=== PATIENT | female | born 1970 | race Caucasian/White ===

== ENCOUNTER 2019-07-25 13:05 | Emergency (ER) | payer BC, SELFPAY ==
--- NOTE | ~2019-07-25 | XR_ITS ---
XR chest 1V portable DATE: 07/25/2019 13:42 INDICATION: Midline chest pressure TECHNIQUE: Portable AP chest on 07/25/2019 at 1336 hours COMPARISON: None FINDINGS: Normal heart size. No hilar or mediastinal enlargement. No pulmonary infiltrate or consolid ation, pleural effusion or pulmonary vascular congestion or pneumothorax. Included skeletal structure s are unremarkable. IMPRESSION: No active cardiopulmonary disease Reviewed, dictated and finalized at location A.
[2019-07-25 13:13] VITALS: BP 132/84; PULSE 78; RESP 12; TEMP 37.1; O2SAT 99
--- NOTE | 2019-07-25 13:25 | ECG_ITS ---
Measurements Intervals [place] Rate: 82 P: 60 SD: 133 QRS: -8 QRSD: 90 T: 33 QT: 351 QTc: 412 Interpretive Statements SINUS RHYTHM WITH SINUS ARRHYTHMIA BASELINE ARTIFACT- I, II, III, AVL NORMAL ECG Electronically Signed On 07-25-2019 17:46:11 CDT by Olivier Cervantes D.O.
--- NOTE | 2019-07-25 13:32 | ED.GENADULT ---
HPI - General Adult General Chief complaint: Chest Pain Stated complaint: chest pressure, left arm pain Time Seen by Provider: 07/25/19 13:15 Source: patient Mode of arrival: ambulatory Limitations: no limitations History of Present Illness HPI narrative: Patient is a 48-year-old female who presents to emergency department for evaluation of left arm pain that developed last night around 2 AM coupled with chest pressure patient took a regular strength aspirin at that time notes this morning she only had chest heaviness. Patient currently denies any arm pain or chest pain. Patient presents per private vehicle per request of her primary care doctor. Patient in the room in no distress denies radicular symptoms paresthesias does note some anxiety with history of anxiety. Denies any past cardiac pulmonary issues or history. Related Data Allergies Allergy/AdvReac Type Severity Reaction Status Date / Time butorphanol Allergy Intermediate incoherent, Verified 04/25/17 18:36 fever cefdinir Allergy Unknown rash Verified 08/28/15 08:22 prochlorperazine Allergy Jittery Verified 07/25/19 13:20 [From Compazine] Review of Systems Review of Systems: All systems reviewed & are unremarkable except as noted in HPI and below PMFSH Past Medical History Medical History (Updated 07/25/19 @ 16:57 by Tomi Blount PA-C) Anxiety Family History Family History (Updated 11/11/13 @ 07:13 by DOCTOR UNKNOWN) Other Carcinoma of colon Cerebrovascular accident Social History Social History Smoking status: Former smoker Second hand tobacco smoke exposure: No Smoking end date: 03/17/01 Alcohol intake: current Exam Narrative: Exam Narrative: GENERAL: Well-appearing, well-nourished, and in no acute distress. HEAD: Normocephalic, atraumatic. EYES: PERRLA and EOMI. ENT: Nares clear, no rhinorrhea or epistaxis. Mucous membranes moist. Oropharynx without tonsillar hypertrophy exudate or other lesions. NECK: Supple. No adenopathy or masses. CHEST: Clear to auscultation. No respiratory distress. No wheezes rales or rhonchi HEART: Regular rate and rhythm. No murmur heard. Normal peripheral pulses. ABDOMEN: Soft, nontender, nondistended EXTREMITIES: Normal range of motion. No edema. SKIN: Warm, dry, no rash. NEURO: No focal deficits. Alert and oriented x3. Cranial nerves II through XII grossly intact PSYCH: Normal mood and affect. Course Course Emergency Course: Patient in the room in no distress felt appropriate for discharge home feeling fine at this time low risk for cardiac risk factors felt appropriate for outpatient re-stratification by primary care patient provided with reasons to return. Patient made aware of case findings treatment plan and diagnosis Vital Signs Vital signs: Vital Signs Temperature 98.7 F 07/25/19 13:13 Pulse Rate 78 07/25/19 13:13 Respiratory Rate 12 07/25/19 13:13 Blood Pressure 132/84 07/25/19 13:13 Pulse Oximetry 99 07/25/19 13:13 Temperature 98.7 F 07/25/19 13:13 Pulse Rate 78 07/25/19 13:13 Respiratory Rate 12 07/25/19 13:13 Blood Pressure 132/84 07/25/19 13:13 Pulse Oximetry 99 07/25/19 13:13 Medical Decision Making MDM Narrative Medical decision making narrative: Patients EKGs and labs are without significant high risk changes. Cardiac risk factors were reviewed. Patient is felt likely to be low risk for ACS and reasonable for further risk stratification testing as an outpatient. Pain was not sudden or maximal in onset without tearing or ripping. quality. No other signs or symptoms to suggest aortic dissection. A low-risk Wells criteria is noted. PE is felt to be unlikely. No pneumonia or URI symptoms were seen on evaluation today. Patient is felt to b reasonable for continued evaluation as an outpatient. Vital Signs Vital Signs: Vital Signs Temperature 98.7 F 07/25/19 13:13 Puls
[2019-07-25 13:34] LABS: Basophils Percent Auto 0.3 % (0.2-1.2); Eosinophils Percent Auto 0.5 % (0-4.4); Hematocrit 41.4 % (37.0-47.0); Hemoglobin 13.7 g/dL (12.0-15.0); Immature Granulocyte Absolute 0.02 K/mm3 (0.00-0.031); Immature Granulocyte Percent A 0.3 % (0-0.5); Lymphocytes Percent Auto 22.8 % (18.3-44.2); Mean Corpuscular HGB Conc 33.1 g/dl (32-36); Mean Corpuscular Hemoglobin 30.4 pg (26-34); Mean Platelet Volume 8.9 fl (7.4-10.4); Monocytes Absolute Auto 0.4 K/mm3 (0.1-0.6); Monocytes Percent Auto 6.7 % (2.6-8.5); Neutrophils Absolute Auto 4.6 K/mm3 (1.3-6.7); Neutrophils Percent Auto 69.4 % (45.5-73.1); Platelet Count Result 295 k/mm3 (150-375); Red Cell Distribution Width 12.7 % (11.5-14.5); White Blood Count 6.6 K/mm3 (4.5-10.0)
[2019-07-25 13:45] LABS: Prothrombin Time 12.6 Seconds (11.1-14.7)
[2019-07-25 13:48] LABS: Alanine Aminotransferase 16 U/L (4-35); Albumin Level 4.8 g/dL (3.5-5.1); Alkaline Phosphatase 77 U/L (38-126); Aspartate Amino Transferase 26 U/L (14-36); Bilirubin,Total 0.8 mg/dL (0.2-1.3); Blood Urea Nitrogen 12 mg/dL (7-17); Calcium 9.4 mg/dL (8.4-10.2); Carbon Dioxide 29 mmol/L (22-30); Chloride 102 mmol/L (98-107); Estimated CRCL calculation 64 ml/min; Estimated Glomerular Filt Rate > 60; Glucose 122 mg/dL (65-105); Lipase 52 U/L (23-300); Potassium 3.7 mmol/L (3.4-5.0); Sodium 139 mmol/L (137-145)
[2019-07-25] MEDS: BELLADONNA ALK/PHENOB ELIX 10 ML, MAG HYDROX/ALUMINUM HYD/SIMETH 30 ML, LIDOCAINE HCL 2... PO (13:56)
[2019-07-25 13:57] LABS: D Dimer 0.27 ug/mL (<0.48)
[2019-07-25 13:59] LABS: Troponin I < 0.012 ng/mL (0.000-0.034)
[2019-07-25 14:07] VITALS: BP 122/60; PULSE 68; RESP 11; O2SAT 98
[2019-07-25 14:08] VITALS: PULSE 65
[2019-07-25 15:27] VITALS: BP 121/69; PULSE 69; RESP 16; O2SAT 98
[2019-07-25 15:48] LABS: Add Urine Microscopic? YES; Appearance Urine Clear (Clear); Bilirubin Urine Negative (Negative); Blood Urine 1+ (Negative); Color Urine Straw (Yellow); Glucose Urine UA Negative (Negative); Ketones Urine Negative (Negative); Leukocyte Esterase Ur Negative LEU/UL (Negative); Mucus Urine Rare /lpf; Nitrate Urine Negative (Negative); Protein Urine Negative (Negative); Specific Grav Ur 1.012 (1.001-1.035); Squamous Epithelial Cell Urine Few /hpf (Few); Urobilinogen Urine Negative mg/dL (<2.0); WBC Urine 0-3 /hpf
[2019-07-25 16:05] VITALS: BP 119/67; PULSE 69; RESP 18; O2SAT 98
[2019-07-25 16:40] LABS: Troponin I < 0.012 ng/mL (0.000-0.034)
[2019-07-25 16:57] VITALS: BP 116/58; PULSE 86; RESP 18; O2SAT 98
== END 2019-07-25 17:48 | disposition home or self-care (01) ==
PROVIDERS: Emergency Medicine Emergency Medical Services; Emergency Provider Emergency Medicine; PCP Physician Assistant
DX: R07.89 Other chest pain (principal); F41.9 Anxiety disorder, unspecified; Z87.891 Personal history of nicotine dependence
CPT/HCPCS: 36415; 71045; 80053; 81001; 83690; 84484; 85025; 85380; 85610; 85730; 93005; 99284; A9270

== ENCOUNTER → 2019-12-07 15:08 | Outpatient (CLI) | payer BC, SELFPAY ==
--- NOTE | ~2019-12-07 | MM_ITS ---
EXAMINATION: MM screening caleb BI w evangelista HISTORY: Screening mammogram TECHNIQUE: Craniocaudal and mediolateral oblique 3-D tomosynthesis images were obtained and synthetic 2-D images were generated. Bilateral rotated lateral cc views. CAD analysis was submitted and interp reted. COMPARISON: , 01/16/2017, 01/05/2016 bilateral digital screening mammogram examinations BREAST PARENCHYMAL COMPOSITION: The breasts are heterogeneously dense, which may obscure small masses . FINDINGS: There is no evidence of suspicious mass, calcification, or architectural distortion to sugg est malignancy in either breast. There has been no suspicious interval change. IMPRESSION: 1. No mammographic evidence of malignancy. 2. Recommend routine screening mammography in one year. BI-RADS Category 1: Negative Reviewed, dictated and finalized at location A.
== END ==
PROVIDERS: PCP Physician Assistant; Visit Provider Nurse Practitioner
DX: Z12.31 Encounter for screening mammogram for malignant neoplasm of breast (principal)
CPT/HCPCS: 77063; 77067

== ENCOUNTER 2020-06-26 12:40 | Outpatient (CLI) | payer BC, SELFPAY ==
--- NOTE | ~2020-06-26 | CT_ITS ---
EXAMINATION: CT abdomen pelvis w con EXAM DATE: 06/26/2020 13:17 INDICATION: Upper abdominal pain. TECHNIQUE: Spiral CT of the abdomen and pelvis was performed following intravenous injection of 100 m L Omnipaque 350. Axial, coronal and sagittal images of the abdomen and pelvis were reviewed. The do se-length product (DLP) for this examination was 269.50 mGy-cm. The exposure was tailored according to patient size (auto mA exposure control), and iterative reconstruction (ASIR) was used as additiona l dose reduction technique. Comparison is made to prior examination from 05/24/2017. FINDINGS: Mild to moderate ascending and sigmoid colonic diverticulosis. There is mild inflammation s urrounding an ascending colon diverticula, acute uncomplicated diverticulitis. No perforation or absc ess. There is adrian mesentery appearance, a nonspecific finding but most commonly caused by infiltration w ith inflammatory cells, chronic mesenteric panniculitis. This is unchanged in appearance compared to 2018. No pathologically enlarged lymph nodes to suggest lymphoma/malignancy, or thrombosed vessels to suggest edema. There is 1.7 cm right liver lobe cyst inferiorly. Spleen, pancreas, adrenal glands are unremarkable. Gallbladder is unremarkable. No biliary obstruction. Portal and splenic veins are patent. Kidneys enhance symmetrically. There is no hydronephrosis. Punctate left calyceal stones. The uterus is re troverted and morphologically normal. The bladder is unremarkable. There is no retroperitoneal or pelvic lymphadenopathy. Small umbilical fat-containing hernia. There are no findings to suggest appendicitis. The stomach and small bowel are unremarkable. There is expected amount of colonic stool. No free intraperitoneal gas. The heart is normal in size. T here are no pericardial or pleural effusions. The lung bases are unremarkable. There are no osteobl astic or osteolytic lesions identified. Mild thoracolumbar dextroscoliosis. IMPRESSION: 1. Acute uncomplicated ascending colonic diverticulitis. 2. Mild chronic adrian mesentery appearance. Reviewed, dictated and finalized at location A.
[2020-06-26 13:43] LABS: Basophils Percent Auto 0.6 % (0.2-1.2); Eosinophils Absolute Auto 0.1 K/mm3 (0-0.3); Eosinophils Percent Auto 2.2 % (0-4.4); Hematocrit 36.9 % (37.0-47.0); Hemoglobin 12.4 g/dL (12.0-15.0); Immature Granulocyte Absolute 0.01 K/mm3 (0.00-0.031); Immature Granulocyte Percent A 0.2 % (0-0.5); Lymphocytes Percent Auto 25.9 % (18.3-44.2); Mean Corpuscular HGB Conc 33.6 g/dl (32-36); Mean Corpuscular Hemoglobin 30.5 pg (26-34); Mean Corpuscular Volume 90.7 fl (80-100); Mean Platelet Volume 8.6 fl (7.4-10.4); Monocytes Absolute Auto 0.3 K/mm3 (0.1-0.6); Monocytes Percent Auto 6.6 % (2.6-8.5); Neutrophils Absolute Auto 3.2 K/mm3 (1.3-6.7); Neutrophils Percent Auto 64.5 % (45.5-73.1); Platelet Count Result 257 k/mm3 (150-375); Red Blood Count 4.07 M/mm3 (4.2-5.4); Red Cell Distribution Width 12.6 % (11.5-14.5)
[2020-06-26 13:57] LABS: Alanine Aminotransferase 19 U/L (4-35); Albumin Level 4.6 g/dL (3.5-5.1); Alkaline Phosphatase 78 U/L (38-126); Amylase 71 U/L (30-110); Anion Gap 7 mmol/L (8-16); Aspartate Amino Transferase 31 U/L (14-36); Bilirubin,Total 1.1 mg/dL (0.2-1.3); Blood Urea Nitrogen 15 mg/dL (7-17); Calcium 9.4 mg/dL (8.4-10.2); Carbon Dioxide 31 mmol/L (22-30); Chloride 100 mmol/L (98-107); Estimated Glomerular Filt Rate > 60; Glucose 93 mg/dL (65-105); Lipase 62 U/L (23-300); Potassium 4.3 mmol/L (3.4-5.0); Sodium 138 mmol/L (137-145)
[2020-06-26 14:02] LABS: Add Urine Microscopic? NO; Appearance Urine Clear (Clear); Bilirubin Urine Negative (Negative); Blood Urine Negative (Negative); Color Urine Straw (Yellow); Glucose Urine UA Negative (Negative); Ketones Urine Negative (Negative); Leukocyte Esterase Ur Negative LEU/UL (NEGATIVE); Nitrate Urine Negative (Negative); Protein Urine Negative (Negative); Urobilinogen Urine Negative mg/dL (<2.0)
[2020-06-26 14:04] LABS: Specific Grav Ur > 1.060 (1.001-1.035)
== END 2020-06-26 12:41 | disposition home or self-care (01) ==
PROVIDERS: PCP Physician Assistant; Visit Provider Physician Assistant
DX: R10.10 Upper abdominal pain, unspecified (principal); R82.998 Other abnormal findings in urine; K57.32 Diverticulitis of large intestine without perforation or abscess without bleeding; K76.89 Other specified diseases of liver; K42.9 Umbilical hernia without obstruction or gangrene
CPT/HCPCS: 36415; 74177; 80053; 81003; 82150; 83690; 85025; 87086; 87088; Q9967

== ENCOUNTER 2020-07-16 18:13 | Observation (INO) | payer BC, SELFPAY ==
--- NOTE | ~2020-07-16 | CT_ITS ---
EXAMINATION: CT abdomen pelvis w con DATE: 07/16/2020 18:48 INDICATION: Lower abdominal pain. TECHNIQUE: Computed tomography (CT) of the abdomen and pelvis was performed with 100 mL Omnipaque-350 intravenous contrast. Automated exposure control and iterative reconstruction technique were employe d. The dose-length product was 275.92 mGy-cm. COMPARISON: 06/26/2020 and 05/05/2017 FINDINGS: Couple 4-5 mm noncalcified granuloma in the left lower lobe unchanged since 05/05/2017. Heart size is normal. No pericardial or pleural effusion. Small sliding-type hiatal hernia. A couple unchanged low- attenuation hepatic cysts, the larger in the right hepatic lobe measuring 1.7 cm. Gallbladder, spleen , pancreas, bilateral adrenal glands are normal. Bilateral nonobstructing renal stones measuring 1 mm in the interpolar region of the right kidney and a couple 2 mm stones in the lower pole of the left kidney. A few small bilateral low-attenuation likely renal cysts which are too small to definitively characterize the larger cyst on the left measuring 7 mm. Mild scattered colonic diverticulosis. Wall thickening in the mid sigmoid colon with inflammatory stranding surrounding a diverticulum consistent with diverticulitis. No abscess or free intraperitoneal gas or fluid. Small bowel and appendix are n ormal. Partially decompressed bladder, retroverted uterus and bilateral adnexa are unremarkable. [employer] abelardo mild haziness to the fat at the root of the mesentery. Mild scattered degenerative skeletal bartlett es. IMPRESSION: 1. Acute uncomplicated sigmoid diverticulitis. 2. Bilateral nonobstructing nephrolithiasis. Reviewed, dictated and finalized at location A.
[2020-07-16 18:16] VITALS: BP 114/77; PULSE 108; RESP 17; TEMP 36.6; O2SAT 98
[2020-07-16 18:27] LABS: Basophils Percent Auto 0.3 % (0.2-1.2); Eosinophils Absolute Auto 0.1 K/mm3 (0-0.3); Eosinophils Percent Auto 1.1 % (0-4.4); Hematocrit 36.9 % (37.0-47.0); Hemoglobin 12.2 g/dL (12.0-15.0); Immature Granulocyte Absolute 0.03 K/mm3 (0.00-0.031); Immature Granulocyte Percent A 0.3 % (0-0.5); Lymphocytes Absolute Auto 1.01 K/mm3 (0.9-3.2); Lymphocytes Percent Auto 10.3 % (18.3-44.2); Mean Corpuscular HGB Conc 33.1 g/dl (32-36); Mean Corpuscular Hemoglobin 30.6 pg (26-34); Mean Corpuscular Volume 92.5 fl (80-100); Mean Platelet Volume 8.5 fl (7.4-10.4); Monocytes Absolute Auto 0.7 K/mm3 (0.1-0.6); Monocytes Percent Auto 7.5 % (2.6-8.5); Neutrophils Absolute Auto 7.9 K/mm3 (1.3-6.7); Neutrophils Percent Auto 80.5 % (45.5-73.1); Platelet Count Result 274 k/mm3 (150-375); Red Blood Count 3.99 M/mm3 (4.2-5.4); Red Cell Distribution Width 12.8 % (11.5-14.5); White Blood Count 9.8 K/mm3 (4.5-10.0)
[2020-07-16 18:35] LABS: Add Urine Microscopic? YES; Appearance Urine Cloudy (Clear); Bilirubin Urine Negative (Negative); Blood Urine Negative (Negative); Color Urine Yellow (Yellow); Glucose Urine UA Negative (Negative); Ketones Urine Negative (Negative); Leukocyte Esterase Ur Negative LEU/UL (Negative); Mucus Urine Rare /lpf; Nitrate Urine Negative (Negative); Protein Urine Negative (Negative); Specific Grav Ur 1.018 (1.001-1.035); Squamous Epithelial Cell Urine Many /hpf (Few); Urobilinogen Urine Negative mg/dL (<2.0); WBC Urine 0-3 /hpf
[2020-07-16 18:38] LABS: Alanine Aminotransferase 18 U/L (4-35); Albumin Level 4.5 g/dL (3.5-5.1); Alkaline Phosphatase 60 U/L (38-126); Anion Gap 8 mmol/L (8-16); Aspartate Amino Transferase 34 U/L (14-36); Bilirubin,Total 0.7 mg/dL (0.2-1.3); Blood Urea Nitrogen 15 mg/dL (7-17); Calcium 9.8 mg/dL (8.4-10.2); Carbon Dioxide 28 mmol/L (22-30); Chloride 104 mmol/L (98-107); Estimated CRCL calculation 63 ml/min; Estimated Glomerular Filt Rate > 60; Glucose 122 mg/dL (65-105); Lipase 61 U/L (23-300); Potassium 3.7 mmol/L (3.4-5.0); Sodium 140 mmol/L (137-145)
--- NOTE | 2020-07-16 19:07 | ED.GENADULT ---
HPI - General Adult General Chief complaint: Abdominal Pain Stated complaint: lower abd pain Time Seen by Provider: 07/16/20 19:02 Source: RN notes reviewed History of Present Illness HPI narrative: Patient presents to emergency department from home for abdominal pain. Patient states that she began to have abdominal pain in the beginning of June at that time she gone to her PCP and had a CT scan showing diverticulitis and was started on Flagyl and Cipro patient states she completed her dose of Flagyl and Cipro however she continued have pain followed up and was started on Augmentin when she took a course of. Patient states she is continued to have pain is now moved in the lower abdomen she called her PCP recommend she come the ER for further evaluation she notes a low-grade fever of 100.2 at home today she does note some diarrhea after the Augmentin that has resolved she denies any chest pain shortness of breath or any other symptoms Related Data Home Medications Medication Instructions Recorded Confirmed amoxicillin-pot clavulanate tablet 07/16/20 sertraline mg 07/16/20 sumatriptan succinate mg PO 07/16/20 Allergies Allergy/AdvReac Type Severity Reaction Status Date / Time butorphanol Allergy Intermediate incoherent, Verified 07/16/20 18:14 fever cefdinir Allergy Unknown rash Verified 07/16/20 18:14 prochlorperazine Allergy Jittery Verified 07/16/20 18:14 [From Compazine] Review of Systems Review of Systems: Narrative: Gen.: Reports fever and chills ENT: Denies congestion Respiratory: Denies shortness of breath or cough CV: Denies chest pain or palpitations GI: See HPI denies burning, urgency, frequency or hematuria Musculoskeletal: Denies back pain or muscle pain Neuro: Denies numbness, tingling, weakness or focal weakness Skin: Denies rash Except as documented, all other systems reviewed and negative [facility] Past Medical History Medical History (Updated 07/16/20 @ 19:27 by Benji Murphy DO) Anxiety Diverticulitis Family History Family History (Updated 11/11/13 @ 07:13 by DOCTOR UNKNOWN) Other Carcinoma of colon Cerebrovascular accident Social History Social History Smoking status: Former smoker Second hand tobacco smoke exposure: No Smoking end date: 03/17/01 Alcohol intake: current Gender identity (if verbalized by the patient): Female Exam Narrative: Exam Narrative: APPEARANCE: No acute distress, nontoxic, resting in bed HEENT: Normocephalic, atraumatic, OMM RESPIRATORY: No respiratory distress, clear to auscultation bilaterally with no rhonchi wheezing or rales CARDIOVASCULAR: RRR s murmur ABDOMINAL: Soft nondistended tender to palpation right lower quadrant left lower quadrant no tenderness left upper quadrant right upper quadrant no rebound or guarding MUSCULOSKELETAl: Moves all extremities. No clubbing, cyanosis or edema. NEURO: Awake and alert. Following commands, speech normal, no focal deficits SKIN:: Warm, dry. Normal Color PSYCHIATRIC: Normal affect/mood Course Course Emergency Course: Discussed with patient her allergy to cefdinir she states she has got a rash and diarrhea patient has been on Augmentin and notes no other difficulties with penicillin Discussed with RUBEN Philippe for Dr. Palacios presentation work-up agrees with admission at this time Discussed with patient and family results of workup and diagnosis. Discussed need for admission. Patient and family understand and agree to current treatment plan Vital Signs Vital signs: Vital Signs Temperature 97.8 F 07/16/20 18:16 Pulse Rate 108 H 07/16/20 18:16 Respiratory Rate 17 07/16/20 18:16 Blood Pressure 114/77 07/16/20 18:16 Pulse Oximetry 98 07/16/20 18:16 Temperature 97.8 F 07/16/20 18:16 Pulse Rate 86 07/16/20 20:53 Respiratory Rate 18 07/16/20 19:28 Blood Pressure 113/68 07/16/20 20:53 Pulse Oximetry
[2020-07-16 19:28] VITALS: BP 127/77; PULSE 95; RESP 18; O2SAT 98
--- NOTE | 2020-07-16 20:09 | PC.NURSE ---
Pt reports pain has returned, EDP aware.
[2020-07-16] MEDS: SODIUM CHLORIDE 0.9% IV 1,000 ML 999 ML IV CONT (20:25)
[2020-07-16] MEDS: KETOROLAC 30 MG/ML VIAL (*BKC) IV PUSH (20:26)
[2020-07-16 20:53] VITALS: BP 113/68; PULSE 86; O2SAT 100
--- NOTE | 2020-07-16 20:59 | ADMGEN ---
This patient, Jesi Root, was admitted to [facility] Surg Room 327-01. Patient/family oriented to hospital policies and general routines including ID bracelet, bed and alarms, visiting hours, pain management, procedures, bathroom and other care routines, personal items, smoking policy, room service/diet, and visiting hours. Information on how to activate the Rapid Response Team has been discussed. Patient/Family are encouraged to report perceived risks to care and to ask questions if they do not understand what they are told or what they should do.
[2020-07-16 21:00] VITALS: BP 118/63; PULSE 80; RESP 18; TEMP 37.3; O2SAT 97; BMI 23.7
[2020-07-16 21:41] VITALS: O2SAT 99
[2020-07-16] MEDS: SERTRALINE HCL 50 MG TABLET PO (23:02)
--- NOTE | 2020-07-16 23:40 | PM.IMHP ---
H&P: HPI History of Present Illness Date/Time: 07/16/20 23:40 Chief Complaint: Diverticulitis with worsening abdominal pain Narrative: 49-year-old female with past medical history of migraines, depression and multiple episodes of diverticulitis who presented to the ER with persistent and worsening abdominal pain. The patient reports that she initially started having symptoms of diverticulitis on 06/25/[address] scan which confirmed recurrent diverticulitis. The patient reported her pain was different prior episodes of diverticulitis in that her pain was more generalized instead of located to her lower abdomen. She was discharged on Cipro and Flagyl for 7 days. She reported that her symptoms initially seemed to get better but were mildly persistent lower abdominal pain when she followed up with her primary care provider. She had been having some nausea associated with the Flagyl but the nausea resolved when the Flagyl was completed. They subsequently changed her antibiotics to Augmentin and she received another 7 day course. With the Augmentin she started having some loose mushy brown stools. She reports that she frequently feels the year urge to go to have a bowel movement but is only passing small amounts of stool. She did not have as much nausea. She was having persistent intermittent abdominal pain. Her abdominal pain did for the most part seemed to localize more to the lower abdomen. Her achy and pressure-like in nature and was an 8 or 9/10 in intensity did. The pain was significantly worse today and was accompanied by new onset of chills and fever. Her highest measure temperature at home was 101. She denies any mucousy stools or bloody stools. She received 1 dose of Toradol in the ER with improvement in her symptoms. She reported that lying down in bed and curling up into a position seemed to help her abdominal pain somewhat. She had tried taking some [id number] probiotics to improve her loose stools with no real improvement in symptoms. She has had a total of 5 episodes of diverticulitis in the past. Her last episode was 2 years ago. Usually she is able to take oral antibiotics as outpatient with resolution of her symptoms. This is the 1st time that her symptoms have persisted so long. Review of Systems Review of Systems: Narrative: 12 systems were reviewed with pertinent positives and negatives per HPI. Except as documented in the HPI, all other systems were reviewed and are negative. [facility] Past Medical History Medical History (Updated 07/17/20 @ 01:38 by Parris Palacios DO) Anxiety Diverticulitis X5 GERD (gastroesophageal reflux disease) Migraines Surgical History Surgical History (Updated 07/17/20 @ 01:38 by Parris Palacios DO) No significant past surgical history Family History Family History Other Carcinoma of colon Cerebrovascular accident Social History Social History (Updated 07/17/20 @ 01:40 by Parris Palacios DO) Social History: The patient is and lives at home with her 11-year-old daughter an 18-year-old son. She also has a 20-year-old daughter who is away at college. She reports a distant history of smoking when she was a teenager and while in college. She drinks a couple of alcoholic beverages a month. She denies any illicit substance use. 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 Primary care provider: Mireille Dinero Code status: Full code Smoking status: Former smoker Tobacco type: cigarettes Second hand tobacco smoke exposure: No Smoking end date: 03/17/01 Alcohol intake: never Substance use: never Gender identity (if verbalized by the patient): Female Spiritual care concerns: No Meds Home Medications and Allergies Home Medications Medication Instructions Recorded Confirmed Type sertraline 50 mg PO HS 07/16/20 07/16/20 History sumatriptan succinate 100 mg PO DAILY
[2020-07-17 01:50] VITALS: TEMP 36.8
[2020-07-17 02:02] LABS: Basophils Percent Auto 0.3 % (0.2-1.2); Eosinophils Absolute Auto 0.1 K/mm3 (0-0.3); Eosinophils Percent Auto 0.9 % (0-4.4); Hematocrit 33.5 % (37.0-47.0); Hemoglobin 11.1 g/dL (12.0-15.0); Immature Granulocyte Absolute 0.01 K/mm3 (0.00-0.031); Immature Granulocyte Percent A 0.1 % (0-0.5); Lymphocytes Absolute Auto 1.55 K/mm3 (0.9-3.2); Lymphocytes Percent Auto 19.8 % (18.3-44.2); Mean Corpuscular HGB Conc 33.1 g/dl (32-36); Mean Corpuscular Hemoglobin 30.7 pg (26-34); Mean Corpuscular Volume 92.8 fl (80-100); Mean Platelet Volume 8.6 fl (7.4-10.4); Monocytes Absolute Auto 0.6 K/mm3 (0.1-0.6); Monocytes Percent Auto 7.8 % (2.6-8.5); Neutrophils Absolute Auto 5.6 K/mm3 (1.3-6.7); Neutrophils Percent Auto 71.1 % (45.5-73.1); Platelet Count Result 240 k/mm3 (150-375); Red Blood Count 3.61 M/mm3 (4.2-5.4); White Blood Count 7.8 K/mm3 (4.5-10.0)
[2020-07-17 02:14] LABS: Anion Gap 6 mmol/L (8-16); Blood Urea Nitrogen 11 mg/dL (7-17); Calcium 8.9 mg/dL (8.4-10.2); Carbon Dioxide 26 mmol/L (22-30); Chloride 108 mmol/L (98-107); Estimated CRCL calculation 63 ml/min; Estimated Glomerular Filt Rate > 60; Glucose 105 mg/dL (65-105); Potassium 3.6 mmol/L (3.4-5.0); Sodium 140 mmol/L (137-145)
[2020-07-17 05:45] VITALS: BP 101/57; PULSE 78; RESP 18; TEMP 37.4; O2SAT 93
[2020-07-17 07:28] LABS: Estimated CRCL calculation 72 ml/min; Estimated Glomerular Filt Rate > 60
[2020-07-17] MEDS: ACETAMINOPHEN 325 MG TABLET 650 MG PO ×2 (10:35→21:53)
[2020-07-17] MEDS: SODIUM CHLORIDE 0.9% IV 1,000 ML 125 ML IV CONT ×2 (10:35→21:55)
[2020-07-17] MEDS: SUMAtriptan SUCCINATE 25 MG TABLET 100 MG PO (12:58)
[2020-07-17 14:00] VITALS: BP 119/51; PULSE 62; RESP 16; TEMP 36.7; O2SAT 98
--- NOTE | 2020-07-17 14:36 | PM.IMPN ---
Progress Note: A&P Assessment and Plan (1) Diverticulitis: Code(s): K57.92 - Diverticulitis of intestine, part unspecified, without perforation or abscess without bleeding Status: Acute Assessment and Plan: Symptoms began on 06/25/[address] scan on 06/26 confirmed recurrent diverticulitis. She received 7 days of Cipro and Flagyl with no improvement in symptoms and was started on Augmentin, again with no improvement. CT scan on 07/16/20 showed acute uncomplicated sigmoid diverticulitis without evidence of abscess or intraperitoneal gas or fluid. She has no leukocytosis or fever. Continue Zosyn, started 07/16/2020 Advanced to full liquid diet. Continue to advance diet slowly and as tolerated Blood cultures are pending Surgical consult considered, but patient states she would prefer to wait at this time and monitor for improvement on antibiotics (2) GERD (gastroesophageal reflux disease): Code(s): K21.9 - Gastro-esophageal reflux disease without esophagitis Status: Inactive Assessment and Plan: No issues at this time Begin Pepcid b.i.d. (3) Migraines: Code(s): G43.909 - Migraine, unspecified, not intractable, without status migrainosus Status: Inactive Assessment and Plan: She has history migraines. She had a headache today that she was concerned might turn into a migraine but this is improved. Sumatriptan available as needed for migraine Subjective Date/time seen: 07/17/20 14:36 Interval history: Date of service: 07/17/2020 Jesi Root is a 49-year-old female with history of multiple episodes of diverticulitis with recent failure of outpatient antibiotic treatment of diverticulitis episode, migraines, GERD, and anxiety who is seen in follow-up for diverticulitis. She is feeling better today. Her abdominal pain has improved and she states it is now more of a tenderness that she rates 3/10. She is still having intermittent abdominal cramping spasms, but this seems to be less frequent. She is having frequent stools and SVT approximately 12 stools today. She states they are becoming slightly more formed and are pencil sized in caliber. She feels urgency and has to get up to get to the bathroom quickly. She also reports frequent urination secondary to IV fluids. She is not having dysuria or hematuria. She denies dizziness, lightheadedness, shortness breath, cough, chest pain, or palpitations. She developed a headache this morning but this has improved today. She has been tolerating clear liquids and would like to advance to full liquids. She has no additional concerns at this time. Review of Systems Review of Systems: All systems reviewed & are unremarkable except as noted in HPI and below Exam Narrative: Exam Narrative: Ms. Root is a well-nourished, well-appearing 49-year-old female who is lying supine in bed. She appears comfortable and is in NARD. Neuro: awake, alert and oriented x4, speech clear, no focal neuro deficits noted HEENMT: normocephalic, atraumatic, EOMI, sclerae anicteric, moist oral mucosa, tongue midline, nares patent Neck: supple, no lymphadenopathy Respiratory: clear to auscultation bilaterally, nonlabored breathing Cardio: regular rate, regular rhythm with S1-S2 Abdomen: nondistended, normoactive bowel sounds, soft, diffusely tender to palpation, no rigidity or guarding Extremities: no edema, erythema, cyanosis, clubbing, or tenderness to palpation, DP pulses 2+ bilaterally Skin: no rashes or lesions, warm and dry Psych: appropriate mood and affect, judgment and insight intact Objective Data Vital Signs Vital Signs: Vital Signs - 24 hr 07/16/20 18:16 07/16/20 19:28 07/16/20 20:53 Temperature 97.8 F Pulse Rate 108 H 95 86 Respiratory Rate 17 18 Blood Pressure 114/77 127/77 113/68 Pulse Oximetry 98 98 100 07/16/20 21:00 07/16/20 21:41 07/17/20 01:50 Temperature 99.2 F 98.2 F Pulse Rate 80
[2020-07-17] MEDS: SACCHAROMYCES BOULARDII 250 MG CAPSULE PO (17:12)
[2020-07-17] MEDS: SERTRALINE HCL 50 MG TABLET PO (21:53)
[2020-07-17] MEDS: FAMOTIDINE 20 MG TABLET PO (21:53)
[2020-07-17 22:00] VITALS: BP 110/67; PULSE 97; RESP 18; TEMP 37.3; O2SAT 97
[2020-07-18 06:00] VITALS: BP 104/50; PULSE 84; RESP 18; TEMP 37.1; O2SAT 96
[2020-07-18 06:00] LABS: Hematocrit 30.4 % (37.0-47.0); Mean Corpuscular HGB Conc 32.9 g/dl (32-36); Mean Corpuscular Hemoglobin 30.3 pg (26-34); Mean Corpuscular Volume 92.1 fl (80-100); Mean Platelet Volume 8.6 fl (7.4-10.4); Platelet Count Result 227 k/mm3 (150-375); Red Cell Distribution Width 13.2 % (11.5-14.5); White Blood Count 7.8 K/mm3 (4.5-10.0)
[2020-07-18 06:15] LABS: Potassium 4.1 mmol/L (3.4-5.0)
[2020-07-18 06:27] LABS: Anion Gap 2 mmol/L (8-16); Blood Urea Nitrogen 5 mg/dL (7-17); Calcium 8.5 mg/dL (8.4-10.2); Carbon Dioxide 28 mmol/L (22-30); Chloride 110 mmol/L (98-107); Estimated CRCL calculation 57 ml/min; Estimated Glomerular Filt Rate > 60; Glucose 91 mg/dL (65-105); Sodium 140 mmol/L (137-145)
[2020-07-18] MEDS: SODIUM CHLORIDE 0.9% IV 1,000 ML 65 ML IV CONT ×2 (07:10→12:08)
[2020-07-18] MEDS: FAMOTIDINE 20 MG TABLET PO ×2 (08:14→20:35)
[2020-07-18] MEDS: SACCHAROMYCES BOULARDII 250 MG CAPSULE PO ×2 (08:14→16:29)
[2020-07-18] MEDS: ACETAMINOPHEN 325 MG TABLET 650 MG PO (08:22)
--- NOTE | 2020-07-18 08:55 | PM.IMPN ---
Progress Note: A&P Assessment and Plan (1) Diverticulitis: Code(s): K57.92 - Diverticulitis of intestine, part unspecified, without perforation or abscess without bleeding Status: Acute Assessment and Plan: Symptoms began on 06/25/[address] scan on 06/26 confirmed recurrent diverticulitis. She received 7 days of Cipro and Flagyl with no improvement in symptoms and was started on Augmentin, again with no improvement. CT scan on 07/16/20 showed acute uncomplicated sigmoid diverticulitis without evidence of abscess or intraperitoneal gas or fluid. She has no leukocytosis or fever. Continue Zosyn, started 07/16/2020 Advance to low fiber diet. She will need to continue low fiber diet x2 weeks then advance to high fiber diet. Continue gentle IV fluids Blood cultures are pending Surgical consult considered, but patient states she would prefer to wait at this time and monitor for improvement on antibiotics. She has orders from PCP to obtain outpatient colonoscopy. (2) GERD (gastroesophageal reflux disease): Code(s): K21.9 - Gastro-esophageal reflux disease without esophagitis Status: Inactive Assessment and Plan: No issues at this time Pepcid b.i.d. (3) Migraines: Code(s): G43.909 - Migraine, unspecified, not intractable, without status migrainosus Status: Inactive Assessment and Plan: She has history of migraines which occur every 1-2 weeks. No headache today. Sumatriptan available as needed for migraine Additional Plan Will obtain stool sample for C. diff testing given watery diarrhea and extended course of antibiotic therapy. Subjective Date/time seen: 07/18/20 08:55 Interval history: Date of service: 07/18/2020 Jesi Root is a 49-year-old female with history of multiple episodes of diverticulitis with recent failure of outpatient antibiotic treatment of diverticulitis episode, migraines, GERD, and anxiety who is seen in follow-up for diverticulitis. She is doing okay today. This morning she had a formed bowel movement. She then noticed abdominal cramping which she rated as 5/10 and subsequently had 2 episodes of brown, watery stools. She is still having mild abdominal cramping, but overall she feels that her pain is improved compared to presentation. She also notes that she feels a bit bloated. She denies nausea or vomiting. She had a low-fiber diet for breakfast this morning and tolerated without difficulty. She denies fever or chills. No headache. No shortness breath, cough, or chest pain. No swelling in her extremities. She denies urinary symptoms. Review of Systems Review of Systems: All systems reviewed & are unremarkable except as noted in HPI and below Exam Narrative: Exam Narrative: Ms. Root is a well-nourished, well-appearing 49-year-old female who is lying supine in bed. She appears comfortable and is in NARD. Neuro: awake, alert and oriented x4, speech clear, no focal neuro deficits noted HEENMT: normocephalic, atraumatic, EOMI, sclerae anicteric, moist oral mucosa, tongue midline, nares patent Neck: supple, no lymphadenopathy Respiratory: clear to auscultation bilaterally, nonlabored breathing Cardio: regular rate, regular rhythm with S1-S2 Abdomen: nondistended, normoactive bowel sounds, soft, slightly tender to palpation of lower abdomen, no rigidity or guarding Extremities: no edema, erythema, cyanosis, clubbing, or tenderness to palpation, DP pulses 2+ bilaterally Skin: no rashes or lesions, warm and dry Psych: appropriate mood and affect, judgment and insight intact Objective Data Vital Signs Vital Signs: Vital Signs - 24 hr 07/17/20 14:00 07/17/20 22:00 07/18/20 06:00 Temperature 98.0 F 99.2 F 98.7 F Pulse Rate 62 97 84 Respiratory Rate 16 18 18 Blood Pressure 119/51 L 110/67 104/50 L Pulse Oximetry 98 97 96 Intake/Output Intake/Output: Intake & Output 07/15/20 07/16/20 07/17/20
[2020-07-18 12:56] VITALS: O2SAT 98
[2020-07-18 14:00] VITALS: BP 106/53; PULSE 92; RESP 20; TEMP 37.1; O2SAT 99
[2020-07-18] MEDS: HYDROcodone/acetaminophen (*CRX) 5-325 MG TABLET 1 TAB PO ×2 (14:04→20:35)
[2020-07-18 20:00] VITALS: PULSE 92; RESP 20; O2SAT 99
[2020-07-18] MEDS: SUMAtriptan SUCCINATE 25 MG TABLET 100 MG PO (20:35)
[2020-07-18 22:00] VITALS: BP 132/55; PULSE 72; RESP 18; TEMP 37.2; O2SAT 97
[2020-07-18] MEDS: DICYCLOMINE HCL 10 MG CAPSULE 20 MG PO (23:51)
[2020-07-19] MEDS: SODIUM CHLORIDE 0.9% IV 1,000 ML 65 ML IV CONT ×2 (05:29→08:06)
[2020-07-19 05:57] LABS: Hematocrit 29.9 % (37.0-47.0); Hemoglobin 9.8 g/dL (12.0-15.0); Mean Corpuscular HGB Conc 32.8 g/dl (32-36); Mean Corpuscular Hemoglobin 30.6 pg (26-34); Mean Corpuscular Volume 93.4 fl (80-100); Mean Platelet Volume 8.8 fl (7.4-10.4); Platelet Count Result 202 k/mm3 (150-375); Red Cell Distribution Width 13.2 % (11.5-14.5)
[2020-07-19 06:00] VITALS: BP 99/58; PULSE 69; RESP 16; TEMP 36.6; O2SAT 98
[2020-07-19 06:51] LABS: Anion Gap 4 mmol/L (8-16); Blood Urea Nitrogen 4 mg/dL (7-17); Calcium 8.6 mg/dL (8.4-10.2); Carbon Dioxide 27 mmol/L (22-30); Chloride 109 mmol/L (98-107); Estimated CRCL calculation 57 ml/min; Estimated Glomerular Filt Rate > 60; Glucose 105 mg/dL (65-105); Magnesium 1.8 mg/dL (1.6-2.3); Sodium 140 mmol/L (137-145)
[2020-07-19 07:03] LABS: Potassium 3.6 mmol/L (3.4-5.0)
[2020-07-19] MEDS: FAMOTIDINE 20 MG TABLET PO ×2 (08:11→20:30)
[2020-07-19] MEDS: DICYCLOMINE HCL 10 MG CAPSULE 20 MG PO ×3 (08:11→20:29)
[2020-07-19] MEDS: SACCHAROMYCES BOULARDII 250 MG CAPSULE PO ×2 (08:11→17:08)
[2020-07-19] MEDS: ONDANSETRON HCL ODT 4 MG TABLET PO (08:41)
[2020-07-19] MEDS: HYDROcodone/acetaminophen (*CRX) 5-325 MG TABLET 1 TAB PO ×2 (10:47→17:14)
--- NOTE | 2020-07-19 12:41 | PM.IMPN ---
Progress Note: A&P Assessment and Plan (1) Diverticulitis: Code(s): K57.92 - Diverticulitis of intestine, part unspecified, without perforation or abscess without bleeding Status: Acute Assessment and Plan: Symptoms began on 06/25/[address] scan on 06/26 confirmed recurrent diverticulitis. She received 7 days of Cipro and Flagyl with no improvement in symptoms and was started on Augmentin, again with no improvement. CT scan on 07/16/20 showed acute uncomplicated sigmoid diverticulitis without evidence of abscess or intraperitoneal gas or fluid. She has no leukocytosis or fever. Continue Zosyn, started 07/16/2020 Advance to low fiber diet. She will need to continue low fiber diet x2 weeks then advance to high fiber diet. Continue gentle IV fluids Blood cultures are pending, preliminary with no growth Surgical consult considered, but patient states she would prefer to wait at this time and monitor for improvement on antibiotics. She has orders from PCP to obtain outpatient colonoscopy. Consult placed to GI, will await recommendations CDIFF results pending (2) GERD (gastroesophageal reflux disease): Code(s): K21.9 - Gastro-esophageal reflux disease without esophagitis Status: Inactive Assessment and Plan: No issues at this time Pepcid b.i.d. (3) Migraines: Code(s): G43.909 - Migraine, unspecified, not intractable, without status migrainosus Status: Inactive Assessment and Plan: She has history of migraines which occur every 1-2 weeks. No headache today. Sumatriptan available as needed for migraine Subjective Date/time seen: 07/19/20 12:41 Pt seen and evaluated; labs, VS and diagnostic reports reviewed Interval history: Date of service: 07/18/2020 Jesi Root is a 49-year-old female with history of multiple episodes of diverticulitis with recent failure of outpatient antibiotic treatment of diverticulitis episode, migraines, GERD, and anxiety who is seen in follow-up for diverticulitis. 07/18--She is doing okay today. This morning she had a formed bowel movement. She then noticed abdominal cramping which she rated as 5/10 and subsequently had 2 episodes of brown, watery stools. She is still having mild abdominal cramping, but overall she feels that her pain is improved compared to presentation. She also notes that she feels a bit bloated. She denies nausea or vomiting. She had a low-fiber diet for breakfast this morning and tolerated without difficulty. She denies fever or chills. No headache. No shortness breath, cough, or chest pain. No swelling in her extremities. She denies urinary symptoms. 5/5 pt continues with moderate abdominal pain; she endorses feeling bloated and some nausea, denies any vomiting; Review of Systems Review of Systems: All systems reviewed & are unremarkable except as noted in HPI and below Exam Narrative: Exam Narrative: Ms. Root is a well-nourished, well-appearing 49-year-old female who is lying supine in bed. She appears comfortable and is in NARD. Neuro: awake, alert and oriented x4, speech clear, no focal neuro deficits noted HEENMT: normocephalic, atraumatic, EOMI, sclerae anicteric, moist oral mucosa, tongue midline, nares patent Neck: supple, no lymphadenopathy Respiratory: clear to auscultation bilaterally, nonlabored breathing Cardio: regular rate, regular rhythm with S1-S2 Abdomen: nondistended, normoactive bowel sounds, soft, slightly tender to palpation of lower abdomen, no rigidity or guarding Extremities: no edema, erythema, cyanosis, clubbing, or tenderness to palpation, DP pulses 2+ bilaterally Skin: no rashes or lesions, warm and dry Psych: appropriate mood and affect, judgment and insight intact Objective Data Vital Signs Vital Signs: Vital Signs - 24 hr 07/18/20 12:56 07/18/20 14:00 07/18/20 20:00 Temperature 37.1 C Pulse Rate 92 92 Respiratory Rate 20 20 Bloo
[2020-07-19 14:00] VITALS: BP 96/50; PULSE 69; RESP 16; TEMP 36.6; O2SAT 99
[2020-07-19] MEDS: SUMAtriptan SUCCINATE 25 MG TABLET 100 MG PO (17:07)
[2020-07-19] MEDS: SERTRALINE HCL 50 MG TABLET PO (20:30)
[2020-07-19 21:27] VITALS: BP 104/53; PULSE 57; RESP 16; TEMP 37.2; O2SAT 98
[2020-07-20 06:00] VITALS: BP 97/51; PULSE 67; RESP 16; TEMP 36.9; O2SAT 98
[2020-07-20 06:13] LABS: Basophils Percent Auto 0.7 % (0.2-1.2); Eosinophils Absolute Auto 0.3 K/mm3 (0-0.3); Eosinophils Percent Auto 5.8 % (0-4.4); Hemoglobin 9.8 g/dL (12.0-15.0); Immature Granulocyte Absolute 0.01 K/mm3 (0.00-0.031); Immature Granulocyte Percent A 0.2 % (0-0.5); Lymphocytes Absolute Auto 1.28 K/mm3 (0.9-3.2); Lymphocytes Percent Auto 23.2 % (18.3-44.2); Mean Corpuscular HGB Conc 32.7 g/dl (32-36); Mean Corpuscular Hemoglobin 30.2 pg (26-34); Mean Corpuscular Volume 92.6 fl (80-100); Mean Platelet Volume 8.8 fl (7.4-10.4); Monocytes Absolute Auto 0.5 K/mm3 (0.1-0.6); Monocytes Percent Auto 8.5 % (2.6-8.5); Neutrophils Absolute Auto 3.4 K/mm3 (1.3-6.7); Neutrophils Percent Auto 61.6 % (45.5-73.1); Platelet Count Result 215 k/mm3 (150-375); Red Blood Count 3.24 M/mm3 (4.2-5.4); Red Cell Distribution Width 13.2 % (11.5-14.5); White Blood Count 5.5 K/mm3 (4.5-10.0)
[2020-07-20 06:25] LABS: Anion Gap 3 mmol/L (8-16); Blood Urea Nitrogen 3 mg/dL (7-17); Calcium 8.7 mg/dL (8.4-10.2); Carbon Dioxide 31 mmol/L (22-30); Chloride 106 mmol/L (98-107); Estimated CRCL calculation 63 ml/min; Estimated Glomerular Filt Rate > 60; Glucose 98 mg/dL (65-105); Potassium 3.4 mmol/L (3.4-5.0); Sodium 140 mmol/L (137-145)
[2020-07-20] MEDS: DICYCLOMINE HCL 10 MG CAPSULE 20 MG PO ×2 (08:52→13:00)
[2020-07-20] MEDS: FAMOTIDINE 20 MG TABLET PO (08:52)
[2020-07-20] MEDS: SACCHAROMYCES BOULARDII 250 MG CAPSULE PO (08:53)
--- NOTE | 2020-07-20 11:28 | WPDGIPROGNO ---
Progress Note: A&P Assessment and Plan (1) Diverticulitis: Code(s): K57.92 - Diverticulitis of intestine, part unspecified, without perforation or abscess without bleeding Status: Acute Assessment and Plan: she can be discharged today on oral antibiotics. Preferably metronidazole and Cipro for least 10 days. Will plan a colonoscopy in 1 month by which time the inflammation should have subsided. She will need been till. I told her to take it on a scheduled 4 times a day Subjective Date/time seen: 07/20/20 11:28 she is still having unformed stools. She feels better today with less abdominal pain. Denies nausea or vomiting. There is no blood in her stools. Review of Systems Review of Systems: All systems reviewed & are unremarkable except as noted in HPI and below Exam GI: Inspection: normal to inspection GI Palp: Yes Soft to palpation and Yes Tenderness to palpation present (GI) ( Diffuse tenderness in the upper and mid abdomen) Objective Data Vital Signs Vital Signs: Vital Signs - 24 hr 07/19/20 14:00 07/19/20 21:27 07/20/20 06:00 Temperature 36.6 C 37.2 C 36.9 C Pulse Rate 69 57 L 67 Respiratory Rate 16 16 16 Blood Pressure 96/50 L 104/53 L 97/51 L Pulse Oximetry 99 98 98 Intake/Output Intake/Output: Intake & Output 07/17/20 07/18/20 07/19/20 07/20/20 23:59 23:59 23:59 23:59 Intake Total 2330 4230 3340 300 Output Total 900 2125 600 800 Balance 1430 2105 2740 -500 Meds/Results Medications: Active Medications Generic Name Dose Route Start Last Admin Trade Name Freq PRN Reason Stop Dose Admin Acetaminophen 650 mg 07/17/20 01:45 07/18/20 08:22 Acetaminophen 325 Mg Tablet PO 650 mg Q4H PRN Administration Mild Pain (1-3) or Fever Hydrocodone Bitart/Acetaminophen 1 tab 07/18/20 11:46 07/19/20 17:14 Hydrocodone/Acetaminophen (*Crx) 5-325 Mg Tablet PO 1 tab Q6H PRN Administration Pain Rated 4-6 Dicyclomine HCl 20 mg 07/19/20 17:00 07/20/20 08:52 Dicyclomine Hcl 10 Mg Capsule PO 20 mg QID KATARZYNA Administration Enoxaparin Sodium 40 mg 07/17/20 09:00 07/20/20 08:53 Enoxaparin 40 Mg/0.4 Ml Syringe SUB-Q Not Given DAILY KATARZYNA Famotidine 20 mg 07/17/20 21:00 07/20/20 08:52 Famotidine 20 Mg Tablet PO 20 mg Q12HR KATARZYNA Administration Piperacillin/Tazobactam/Dextrose 3.375 gm in 50 mls @ 100 mls/hr 07/17/20 00:00 07/20/20 06:20 Zosyn 3.375 Gm/D5w 50ml Pm IVPB Infused Q6HR KATARZYNA Infusion Ondansetron HCl 4 mg 07/19/20 08:17 07/19/20 08:41 Ondansetron Hcl Odt 4 Mg Tablet PO 4 mg Q6H PRN Administration Nausea And Vomiting Saccharomyces Boulardii 250 mg 07/17/20 17:00 07/20/20 08:53 Saccharomyces Boulardii 250 Mg Capsule PO 250 mg BID KATARZYNA Administration Sertraline HCl 50 mg 07/16/20 23:55 07/19/20 20:30 Sertraline Hcl 50 Mg Tablet PO 50 mg HS KATARZYNA Administration Sumatriptan Succinate 100 mg 07/16/20 23:49 07/19/20 17:07 Sumatriptan Succinate 25 Mg Tablet PO 100 mg DAILY PRN Administration Migraine Headache Radiology Results: ITS Impressions Abdomen/Pelvis CT 07/16/20 18:56 IMPRESSION: 1. Acute uncomplicated sigmoid diverticulitis. 2. Bilateral nonobstructing nephrolithiasis. Labs Labs: Laboratory Results - last 24 hr 07/20/20 07/20/20 06:01 06:01 WBC 5.5 RBC 3.24 L Hgb 9.8 L Hct 30.0 L MCV 92.6 MCH 30.2 MCHC 32.7 RDW 13.2 Plt Count 215 MPV 8.8 Immature Gran % (Auto) 0.2 Neut % (Auto) 61.6 Lymph % (Auto) 23.2 [place] % (Auto) 8.5 Eos % (Auto) 5.8 H Baso % (Auto) 0.7 Lymph # (Auto) 1.28 [place] # (Auto) 0.5 Eos # (Auto) 0.3 Baso # (Auto) 0.0 Abs Immat Gran (auto) 0.01 Absolute Neuts (auto) 3.4 Absolute Nucleated RBC 0.0 Nucleated RBC % 0.0 Sodium 140 Potassium 3.4 Chloride 106 Carbon Dioxide 31 H Anion Gap 3 L BUN 3 L Creatinine 0.80 Estim Creat Clear Calc 63 Estimate
[2020-07-20] MEDS: SUMAtriptan SUCCINATE 25 MG TABLET 100 MG PO (14:21)
[2020-07-20 14:25] VITALS: BP 100/44; PULSE 74; RESP 20; TEMP 36.8; O2SAT 97
--- NOTE | 2020-07-20 16:21 | PM.DS ---
DS: Admitting Diagnosis Admitting Diagnosis Admitting Diagnosis: diverticulitis <CHADWICK Altamirano - Last Filed: 07/20/20 16:41> DS: Discharge Diagnosis Discharge Diagnosis (1) Diverticulitis: Code(s): K57.92 - Diverticulitis of intestine, part unspecified, without perforation or abscess without bleeding <CHADWICK Altamirano - Last Filed: 07/20/20 16:41> Status: Acute <CHADWICK Altamirano - Last Filed: 07/20/20 16:41> Assessment and Plan: Symptoms began on 06/25/[address] scan on 06/26 confirmed recurrent diverticulitis. She received 7 days of Cipro and Flagyl with no improvement in symptoms and was started on Augmentin, again with no improvement. CT scan on 07/16/20 showed acute uncomplicated sigmoid diverticulitis without evidence of abscess or intraperitoneal gas or fluid. She has no leukocytosis or fever. S/p Zosyn, started 07/16/2020 Advance to low fiber diet. She will need to continue low fiber diet x2 weeks then advance to high fiber diet. S/p IVFs Blood cultures are pending, preliminary with no growth Surgical consult considered, but patient states she would prefer to wait at this time and monitor for improvement on antibiotics. She has orders from PCP to obtain outpatient colonoscopy. Consult placed to GI, recommendations appreciated CDIFF canceled <CHADWICK Altamirano - Last Filed: 07/20/20 16:41> (2) GERD (gastroesophageal reflux disease): Code(s): K21.9 - Gastro-esophageal reflux disease without esophagitis <CHADWICK Altamirano - Last Filed: 07/20/20 16:41> Status: Inactive <CHADWICK Altamirano - Last Filed: 07/20/20 16:41> Assessment and Plan: No issues at this time Pepcid b.i.d. <CHADWICK Altamirano - Last Filed: 07/20/20 16:41> (3) Migraines: Code(s): G43.909 - Migraine, unspecified, not intractable, without status migrainosus <CHADWICK Altamirano - Last Filed: 07/20/20 16:41> Status: Inactive <Mari Smith, CHADWICK - Last Filed: 07/20/20 16:41> Assessment and Plan: She has history of migraines which occur every 1-2 weeks. No headache today. Sumatriptan available as needed for migraine <Mari Smith, ANNETTA-Luis Miguel - Last Filed: 07/20/20 16:41> DS: Summary Hospital Course Hospital Course: 49 year old female with PMH migraines, depression and multiple episodes of diverticulitis who presented to the ER with persistent and worsening abdominal pain. She reported that she initially started having symptoms of diverticulitis on 06/25/[address] scan which confirmed recurrent diverticulitis. She reported her pain was different prior episodes of diverticulitis in that her pain was more generalized instead of located to her lower abdomen. She was discharged on Cipro and Flagyl for 7 days. She reported that her symptoms initially seemed to get better but were mildly persistent lower abdominal pain when she followed up with her primary care provider. She had some nausea associated with the Flagyl but the nausea resolved when the Flagyl was completed. Subsequently, her antibiotics were changed to Augmentin and she received another 7 day course. With the Augmentin she started having some loose mushy brown stools. She reported that she frequently feels the year urge to go to have a bowel movement but is only passing small amounts of stool. She did not have as much nausea, however she was having persistent intermittent abdominal pain. Her achy and pressure-like in nature and was an 8 or 9/10 in intensity on admission accompanied by new onset of chills and fever. She denied any loose with mucous stools or bloody stools. She received 1 dose of Toradol in the ER with improvement in her symptoms. During her hospitalization, her symptoms persisted with little improvement. She was treated with IV Zosyn and analgesics. Dr. Mehta (
== END 2020-07-20 14:35 | disposition home or self-care (01) ==
LOC: ANHED 19:27 → ANH3MEDSUR 20:21
PROVIDERS: Family Medicine; Nurse Practitioner Adult Health; Physician Assistant; Admitting Provider Internal Medicine; Emergency Provider Emergency Medicine; PCP Physician Assistant; Visit Provider Family Medicine
DX: K57.32 Diverticulitis of large intestine without perforation or abscess without bleeding (principal); K21.9 Gastro-esophageal reflux disease without esophagitis; G43.909 Migraine, unspecified, not intractable, without status migrainosus; R10.9 Unspecified abdominal pain; Z87.891 Personal history of nicotine dependence
CPT/HCPCS: 36415; 74177; 80048; 80053; 81001; 81025; 82565; 83690; 83735; 85025; 85027; 87040; 96361; 96365; 96366; 96372; 96375; 96376; 99285; A9270; G0378; J1650; J1885; J2543; J7030; Q9967

== ENCOUNTER 2020-08-08 03:28 | Emergency (ER) | payer BC, SELFPAY ==
--- NOTE | ~2020-08-08 | CT_ITS ---
EXAMINATION: CT abdomen pelvis w con DATE: 08/08/2020 04:15 INDICATION: Right lower quadrant abdominal pain. TECHNIQUE: Computed tomography (CT) of the abdomen and pelvis was performed with 100 mL Omnipaque 350 intravenous contrast. Automated exposure control and iterative reconstruction technique were employe d. The dose-length product was 298.13 mGy-cm. COMPARISON: CT abdomen and pelvis 07/16/2020 FINDINGS: The visualized portions of the lung bases demonstrate mild atelectasis. No pleural effusion . The heart size is normal. No pericardial effusion. There are cysts in the liver measuring up to 15 mm. The gallbladder, spleen, pancreas, and adrenal glands are normal. There are cysts in the kidneys measuring up to 8 mm on the left. There is a 2 mm stone in left kidney right kidney. There are two 2 mm stones in left kidney. There are no dilated loops of bowel. The appendix is normal. There is diver ticulosis of the colon without evidence of diverticulitis. The colon is decompressed. There is chroni c fat stranding at the root of the small bowel mesentery, likely not clinically significant. Pelvic f fab relaxation is noted. There are no pathologically enlarged lymph nodes. There is no free intraper itoneal fluid. There is mild lumbar spondylosis. IMPRESSION: 1. Interval resolution of diverticulitis. 2. Small bilateral nonobstructing kidney stones. 3. Pelvic floor relaxation. Reviewed, dictated and finalized at location A.
[2020-08-08 03:30] VITALS: BP 106/58; PULSE 91; RESP 16; TEMP 37; O2SAT 97
--- NOTE | 2020-08-08 03:47 | ED.ABDPAIN ---
HPI - Abdominal Pain General Chief Complaint: Abdominal Pain Stated Complaint: abd cramping/diarrhea/nausea Time Seen by Provider: 08/08/20 03:35 History of Present Illness HPI narrative: Cramping lower abdominal pain. This started more than 3 weeks ago when she was diagnosed with diverticulitis. She was put on oral antibiotics, but failed to improve. She was then in the hospital for 4 days on IV antibiotics before being discharged to complete another 10 day course. After that the pain was better, but she never felt fully back to normal. Now over the past few days she has begun having intermittent severe lower abdominal cramps similar to what she had initially. No fever, vomiting, diarrhea. Related Data Home Medications Medication Instructions Recorded Confirmed sertraline 50 mg PO HS 07/16/20 07/16/20 sumatriptan succinate 100 mg PO DAILY PRN 07/16/20 07/16/20 Allergies Allergy/AdvReac Type Severity Reaction Status Date / Time butorphanol Allergy Intermediate incoherent, Verified 07/16/20 18:14 fever cefdinir Allergy Unknown rash Verified 07/16/20 18:14 prochlorperazine Allergy Jittery Verified 07/16/20 18:14 [From Compazine] Review of Systems Review of Systems: All systems reviewed & are unremarkable except as noted in HPI and below Constitutional: Constitutional: Denies chills and Denies fever(s) Cardiovascular: Cardiovascular: Denies chest pain Respiratory: Respiratory: Denies dyspnea Genitourinary: Genitourinary: Denies hematuria, Denies nocturia and Denies dysuria Musculoskeletal: Musculoskeletal: Denies back pain PMFSH Past Medical History Medical History Anxiety Diverticulitis X5 GERD (gastroesophageal reflux disease) Migraines Surgical History Surgical History No significant past surgical history Family History Family History Other Carcinoma of colon Cerebrovascular accident Social History Social History Social History: The patient is and lives at home with her 11-year-old daughter an 18-year-old son. She also has a 20-year-old daughter who is away at college. She reports a distant history of smoking when she was a teenager and while in college. She drinks a couple of alcoholic beverages a month. She denies any illicit substance use. 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 Primary care provider: Mireille Dinero Code status: Full code Smoking status: Former smoker Tobacco type: cigarettes Second hand tobacco smoke exposure: No Smoking end date: 03/17/01 Alcohol intake: never Substance use: never Gender identity (if verbalized by the patient): Female Spiritual care concerns: No Exam Const: General: healthy appearing, no acute distress and alert Orientation/consciousness: patient oriented x3 HENMT: Head: normal to inspection Neck: Neck: normal visual inspection and no lymphadenopathy Chest: Chest palpation & inspection: no tenderness Resp: Effort & Inspection: normal respiratory effort Auscultation: clear to auscultation bilaterally, no rales, no rhonchi and no wheezes Cardio: Jugular venous distension: no JVD Rate: regular rate Rhythm: regular rhythm Heart sounds: no murmurs GI: Inspection: non-distended GI Palp: Yes Soft to palpation, Yes Tenderness to palpation present (GI) (mild, periumbilical), No Guarding due to palpation present (GI), No Palpable mass present and No Rebound tenderness present Auscultation: normal bowel sounds Skin: General skin exam: normal color Neuro: General: patient oriented x3 and moves all extremities Speech: normal speech Extrem: General: no edema Psych: Appearance: well kempt Affect: Anxious affect present Course Vital Signs Vital signs: Vital Signs Tempera
[2020-08-08 04:32] LABS: Basophils Percent Auto 0.3 % (0.2-1.2); Eosinophils Absolute Auto 0.1 K/mm3 (0-0.3); Eosinophils Percent Auto 1.5 % (0-4.4); Hematocrit 36.9 % (37.0-47.0); Hemoglobin 12.4 g/dL (12.0-15.0); Immature Granulocyte Absolute 0.02 K/mm3 (0.00-0.031); Immature Granulocyte Percent A 0.3 % (0-0.5); Lymphocytes Absolute Auto 1.32 K/mm3 (0.9-3.2); Lymphocytes Percent Auto 18.5 % (18.3-44.2); Mean Corpuscular HGB Conc 33.6 g/dl (32-36); Mean Corpuscular Hemoglobin 30.4 pg (26-34); Mean Corpuscular Volume 90.4 fl (80-100); Monocytes Absolute Auto 0.5 K/mm3 (0.1-0.6); Monocytes Percent Auto 7.6 % (2.6-8.5); Neutrophils Absolute Auto 5.1 K/mm3 (1.3-6.7); Neutrophils Percent Auto 71.8 % (45.5-73.1); Platelet Count Result 253 k/mm3 (150-375); Red Blood Count 4.08 M/mm3 (4.2-5.4); Red Cell Distribution Width 13.5 % (11.5-14.5); White Blood Count 7.1 K/mm3 (4.5-10.0)
[2020-08-08 04:47] VITALS: BP 110/60; PULSE 68; RESP 20; O2SAT 100
[2020-08-08 04:52] LABS: Alanine Aminotransferase 16 U/L (4-35); Albumin Level 4.2 g/dL (3.5-5.1); Alkaline Phosphatase 58 U/L (38-126); Anion Gap 6 mmol/L (8-16); Aspartate Amino Transferase 28 U/L (14-36); Bilirubin,Total 0.9 mg/dL (0.2-1.3); Blood Urea Nitrogen 16 mg/dL (7-17); Carbon Dioxide 26 mmol/L (22-30); Chloride 103 mmol/L (98-107); Estimated CRCL calculation 63 ml/min; Estimated Glomerular Filt Rate > 60; Glucose 113 mg/dL (65-105); Lipase 36 U/L (23-300); Potassium 3.4 mmol/L (3.4-5.0); Sodium 135 mmol/L (137-145)
[2020-08-08 05:00] LABS: Add Urine Microscopic? YES; Appearance Urine Clear (Clear); Bacteria Urine Trace /hpf; Bilirubin Urine Negative (Negative); Blood Urine Negative (Negative); Color Urine Yellow (Yellow); Glucose Urine UA Negative (Negative); Ketones Urine Trace mg/dL (Negative); Leukocyte Esterase Ur Negative LEU/UL (Negative); Mucus Urine Rare /lpf; Nitrate Urine Negative (Negative); Protein Urine Negative (Negative); Squamous Epithelial Cell Urine Many /hpf (Few); Urobilinogen Urine Negative mg/dL (<2.0); WBC Urine 0-3 /hpf
[2020-08-08 06:01] VITALS: BP 130/78; PULSE 78; RESP 20; O2SAT 100
== END 2020-08-08 06:02 | disposition home or self-care (01) ==
PROVIDERS: Emergency Provider Emergency Medicine; PCP Physician Assistant
DX: R10.30 Lower abdominal pain, unspecified (principal); F41.9 Anxiety disorder, unspecified; K21.9 Gastro-esophageal reflux disease without esophagitis; Z87.891 Personal history of nicotine dependence
CPT/HCPCS: 36415; 74177; 80053; 81001; 81025; 83690; 85025; 99284; Q9967

== ENCOUNTER → 2020-08-22 02:15 | Outpatient (CLI) | payer BC, SELFPAY ==
[2020-08-22 23:32] LABS: SARS-CoV-2 RNA PCR Negative
== END ==
PROVIDERS: PCP Physician Assistant; Visit Provider Internal Medicine Gastroenterology
DX: Z01.812 Encounter for preprocedural laboratory examination (principal); Z20.822 Contact with and (suspected) exposure to COVID-19
CPT/HCPCS: C9803; U0003; U0005

== ENCOUNTER 2020-08-25 02:16 | Day surgery (SDC) | payer BC, SELFPAY ==
[2020-08-17 10:16] VITALS: BMI 21.9
[2020-08-25 07:20] VITALS: BP 115/62; PULSE 71; RESP 18; O2SAT 98
[2020-08-25 07:23] VITALS: BMI 21.4
--- NOTE | 2020-08-25 08:06 | P.HP_ITS ---
History of Present Illness History of Present Illness Consent: Risks, benefits, and alternatives have been discussed and questions answered. Patient agrees to proceed with procedure. Chief complaint: Diverticulitis Narrative: Jesi Root is a 49 year old female With recent diverticulitis. After treatment her symptoms have persisted for several weeks. She is due for colon cancer screen Review of Systems Review of Systems: All systems reviewed & are unremarkable except as noted in HPI and below PMFSH Past Medical History Medical History Anxiety Diverticulitis X5 GERD (gastroesophageal reflux disease) Migraines Surgical History Surgical History No significant past surgical history Family History Family History Other Carcinoma of colon Cerebrovascular accident Social History Social History Social History: The patient is and lives at home with her 11-year-old daughter an 18-year-old son. She also has a 20-year-old daughter who is away at college. She reports a distant history of smoking when she was a teenager and while in college. She drinks a couple of alcoholic beverages a month. She denies any illicit substance use. 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 Primary care provider: Mireille Dinero Code status: Full code Smoking status: Former smoker Tobacco type: cigarettes Second hand tobacco smoke exposure: No Smoking end date: 03/17/01 Alcohol intake: current Alcohol use details: 2X MONTHLY Substance use: never Living arrangements: with family Gender identity (if verbalized by the patient): Female Spiritual care concerns: No Meds Home Medications and Allergies Home Medications Medication Instructions Recorded Confirmed Type sertraline 50 mg PO HS 07/16/20 08/17/20 History dicyclomine 20 mg PO QID 30 Days #240 cap 07/20/20 08/25/20 Rx sodium,potassium,mag sulfates 17.5 See Rx Instructions PO .COMPLEX 08/02/20 Rx gram-3.13 gram-1.6 gram oral soln #354 ml omeprazole 20 mg PO DAILY 08/17/20 08/17/20 History sumatriptan succinate 100 mg PO DAILY PRN 08/17/20 08/25/20 History Allergies Allergy/AdvReac Type Severity Reaction Status Date / Time butorphanol Allergy Intermediate incoherent, Verified 08/17/20 10:14 fever cefdinir Allergy Unknown rash Verified 08/17/20 10:14 prochlorperazine Allergy Jittery Verified 08/17/20 10:14 [From Compazine] Exam Resp: Auscultation: clear to auscultation bilaterally Cardio: Rate: regular rate Rhythm: regular rhythm GI: GI Palp: Yes Soft to palpation and No Tenderness to palpation present (GI) Assessment and Plan Assessment and plan (1) Diverticulitis: Code(s): K57.92 - Diverticulitis of intestine, part unspecified, without perforation or abscess without bleeding Status: Acute Assessment and Plan: Colonoscopy with possible biopsy or polypectomy or cautery or injection of substances.
--- NOTE | 2020-08-25 08:06 | WPDANESEPPF ---
Anes - Initial Pre Proc Eval Procedure: Operation Date: 08/25/20 08:30 Proposed Procedures p Colonoscopy - Alec Mehta MD Date/Time: 08/25/20 08:06 Surgeon: Alec Mehta MD Pre Op Diagnosis: Diverticulitis Patient Data Age: 49 Gender: F Height: 5 ft 4 in Weight: 56.7 kg Allergies Allergy/AdvReac Type Severity Reaction Status Date / Time butorphanol Allergy Intermediate incoherent, Verified 08/17/20 10:14 fever cefdinir Allergy Unknown rash Verified 08/17/20 10:14 prochlorperazine Allergy Jittery Verified 08/17/20 10:14 [From Compazine] Home Medications Medication Instructions Recorded Confirmed Type sertraline 50 mg PO HS 07/16/20 08/17/20 History dicyclomine 20 mg PO QID 30 Days #240 cap 07/20/20 08/25/20 Rx sodium,potassium,mag sulfates 17.5 See Rx Instructions PO .COMPLEX 08/02/20 Rx gram-3.13 gram-1.6 gram oral soln #354 ml omeprazole 20 mg PO DAILY 08/17/20 08/17/20 History sumatriptan succinate 100 mg PO DAILY PRN 08/17/20 08/25/20 History Patient hx anesthesia problems: none Family hx anesthesia problems: none PMFSH Past Medical History Medical History Anxiety Diverticulitis X5 GERD (gastroesophageal reflux disease) Migraines Surgical History Surgical History No significant past surgical history Family History Family History Other Carcinoma of colon Cerebrovascular accident Social History Social History Social History: The patient is and lives at home with her 11-year-old daughter an 18-year-old son. She also has a 20-year-old daughter who is away at college. She reports a distant history of smoking when she was a teenager and while in college. She drinks a couple of alcoholic beverages a month. She denies any illicit substance use. 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 Primary care provider: Mireille Dinero Code status: Full code Smoking status: Former smoker Tobacco type: cigarettes Second hand tobacco smoke exposure: No Smoking end date: 03/17/01 Alcohol intake: current Alcohol use details: 2X MONTHLY Substance use: never Living arrangements: with family Gender identity (if verbalized by the patient): Female Spiritual care concerns: No Anes - Eval Final PreProcedure Day of Procedure 08/25/20 08:06 Patient weight: normal Heart: regular rate and rhythm Lungs: clear to auscultation Airway: Mallampati scale class II Neurological: alert and oriented Last oral intake: >/= 8 hours ASA classification: II Emergent: no Anesthetic plan: proceed Anesthesia type and monitoring: general GIVS and standard monitoring Informed Consent: The patient's anesthetic plan and its attendant risks and benefits were discussed with the patient/family/POA. Questions were solicited and answers provided to the satisfaction of the patient/family/POA.
[2020-08-25] MEDS: LACTATED RINGERS 1,000 ML 150 ML IV CONT (08:29)
[2020-08-25 08:39] VITALS: BP 88/50; PULSE 68; RESP 14; O2SAT 100
[2020-08-25 08:49] VITALS: BP 106/64; PULSE 63; RESP 17; O2SAT 100
[2020-08-25 08:59] VITALS: BP 102/63; PULSE 62; RESP 18; O2SAT 100
== END 2020-08-25 09:12 | disposition home or self-care (01) ==
PROVIDERS: PCP Physician Assistant; Visit Provider Internal Medicine Gastroenterology
PROC: 0DJD8ZZ Inspection of Lower Intestinal Tract, Via Natural or Artificial Opening Endoscopic (ICD-10-PCS; CPT 45378; principal; 2020-08-25 08:30)
DX: Z09 Encounter for follow-up examination after completed treatment for conditions other than malignant neoplasm (principal); R93.3 Abnormal findings on diagnostic imaging of other parts of digestive tract; K57.32 Diverticulitis of large intestine without perforation or abscess without bleeding; F41.9 Anxiety disorder, unspecified; K21.9 Gastro-esophageal reflux disease without esophagitis; Z87.891 Personal history of nicotine dependence
CPT/HCPCS: 45378; J2704; J7120

== ENCOUNTER → 2020-12-05 17:58 | Outpatient (CLI) | payer BC, SELFPAY ==
--- NOTE | ~2020-12-05 | DEXA_ITS ---
Bone Density Report Name: Jesi Root Age: 50 Sex: Female Ethnicity: White Date of : 1970 Indication: postmenopausal; screening for osteoporosis; Referring Provider: [place], Sera Study: Bone densitometry was performed. Exam Date: December 05, 2020 Accession number: [id number] Bone Density: Region BMD T-score Z-score Classification AP Spine (L1-L4) 1.220 1.6 2.4 Normal Femoral Neck (Left) 0.789 -0.5 0.3 Normal Total Hip (Left) 0.929 -0.1 0.4 Normal Femoral Neck (Right) 0.744 -0.9 -0.1 Normal Total Hip (Right) 0.905 -0.3 0.2 Normal Total Hip Mean 0.917 -0.2 0.3 Normal World Health Organization criteria for BMD impression classify patients as: Normal (T-score at or above -1.0), Osteopenia (T-score between -1.0 and -2.5), or Osteoporosis (T-score at or below -2.5). 10-year Fracture Risk: FRAX not reported because: All T-scores for Spine Total, Hip Total, Femoral Neck at or above -1.0 Clinical Information Provided by Patient: Patient maximum height was 64 Menopause Age: 50 Drinks caffeinated beverages Onset of menses at age 13 Number of children 3 Impression: The patient has normal bone mass. Discussion: BONE DENSITY IS ABOVE THE MINIMUM DESIRABLE LEVEL AT ALL SKELETAL SITES TESTED. This patient?s bone mineral density is above the minimum desirable level (T-score -1.0 or better) at all sites measured. The patient should follow a healthful lifestyle (good nutrition with adequate calcium and vitamin D, and appropriate weight-bearing exercise). Follow-Up: Consider repeating this study in 5 years or sooner if there is some new clinical indication. Reported by: MONAE on 12/06/2020 12:40:00 PM. Reviewed, dictated and finalized at location A. [facility]
== END ==
PROVIDERS: PCP Physician Assistant; Visit Provider Nurse Practitioner
DX: Z13.820 Encounter for screening for osteoporosis (principal)
CPT/HCPCS: 77080

== ENCOUNTER → 2021-02-05 14:07 | Outpatient (CLI) | payer BC, SELFPAY ==
--- NOTE | ~2021-02-05 | MM_ITS ---
EXAMINATION: MM screening [facility] BI w evangelista HISTORY: Screening mammogram TECHNIQUE: Craniocaudal and mediolateral oblique 3-D tomosynthesis images were obtained and synthetic 2-D images were generated. CAD analysis was submitted and interpreted. COMPARISON: 12/07/2019, 06/19/2018, 01/16/2017 BREAST PARENCHYMAL COMPOSITION: The breasts are heterogeneously dense, which may obscure small masses . FINDINGS: RIGHT BREAST: There is no evidence of suspicious mass, calcification, or architectural distortion to suggest malignancy. There has been no significant interval change. LEFT BREAST: There is a possible mass in the middle third of the upper breast best appreciated 5.3 cm from the nipple on the mediolateral oblique view. IMPRESSION: 1. Possible left breast mass. 2. Additional mammographic views and possible breast ultrasound are recommended. BI-RADS Category 0: Incomplete: Needs additional imaging evaluation. Reviewed, dictated and finalized at location A. UREMENT BUYER IMPRESSION: 1. Possible left breast mass. 2. Additional mammographic views and possible breast ultrasound are recommended . BI-RADS Category 0: Incomplete: Needs additional imaging evaluation.
== END ==
PROVIDERS: PCP Physician Assistant; Visit Provider Nurse Practitioner
DX: Z12.31 Encounter for screening mammogram for malignant neoplasm of breast (principal); R92.8 Other abnormal and inconclusive findings on diagnostic imaging of breast
CPT/HCPCS: 77063; 77067

== ENCOUNTER → 2021-03-01 08:15 | Outpatient (CLI) | payer BC, SELFPAY ==
--- NOTE | ~2021-03-01 | MMUS_ITS ---
EXAMINATION: MM diagnostic [facility] LT w evangelista, US breast LT limited HISTORY: Possible left breast mass in middle third of upper breast reported on 02/05/2021 screening m ammogram TECHNIQUE: Additional 3-D tomosynthesis images of the left breast were performed and synthetic 2-D im ages were generated. CAD analysis was submitted and interpreted. High resolution upper inner and uppe r outer quadrant left breast ultrasound was performed. COMPARISON: 02/05/2021 bilateral screening mammogram 12/07/2019, 06/19/2018 bilateral screening mammogram examinations FINDINGS: MAMMOGRAPHIC FINDINGS: No suspicious mass or architectural distortion, malignant calcifications, skin thickening or retracti on is detected. No significant new or developing density is detected. ULTRASOUND: No suspicious mass or shadowing or other significant sonographic abnormality is detected in the upper inner or upper outer quadrants. IMPRESSION: 1. No mammographic evidence of malignancy 2. Routine annual mammographic screening is recommended. BI-RADS Category 1: Negative Reviewed, dictated and finalized at location A. LY SERVICES SPECIALIST IMPRESSION: 1. No mammographic evidence of malignancy 2. Routine annual mammographic screening is recommended. BI-RADS Category 1: Negative
== END ==
PROVIDERS: PCP Physician Assistant; Visit Provider Obstetrics & Gynecology Gynecology
DX: R92.8 Other abnormal and inconclusive findings on diagnostic imaging of breast (principal)
CPT/HCPCS: 76642; 77061; 77065; G0279

== ENCOUNTER 2021-06-25 16:46 | Emergency (ER) | payer BC, SELFPAY ==
--- NOTE | ~2021-06-25 | CT_ITS ---
EXAMINATION: CT abdomen pelvis w con DATE: 06/25/2021 19:19 INDICATION: pain/hx of diverticultis TECHNIQUE: Computed tomography (CT) of the abdomen and pelvis was performed without intravenous contr ast. The dose-length product was 228.80 mGy-cm. COMPARISON: 08/08/2020. FINDINGS: Lower thorax: Unremarkable. Liver: Right lobe cyst/meningioma and lesions that are too small to characterize. Biliary/Gallbladder: Gallbladder is normal. No bile duct dilation. Spleen: Normal. Pancreas: No mass or duct dilation. Adrenals:Normal. Kidneys: Bilateral nonobstructive nephroliths and hypodensities that are too small to characterize. GI tract: No small or large bowel dilation. Normal appendix. Diverticulosis without evidence of diver ticulitis. Mesentery/Peritoneum: No ascites, mass, or free air. Retroperitoneum: No mass. Pelvis: Pelvic organs are within normal limits. Bones/Soft Tissues: Soft tissues and body wall unremarkable. No acute osseous finding. Additional Findings: None. IMPRESSION: No acute abdominopelvic process. Reviewed, dictated and finalized at location K.
[2021-06-25 17:24] VITALS: BP 101/58; PULSE 75; RESP 16; TEMP 36.6; O2SAT 98
[2021-06-25 17:47] LABS: Basophils Percent Auto 0.4 % (0.2-1.2); Eosinophils Absolute Auto 0.1 K/mm3 (0-0.3); Eosinophils Percent Auto 1.3 % (0-4.4); Hematocrit 40.8 % (37.0-47.0); Hemoglobin 13.6 g/dL (12.0-15.0); Immature Granulocyte Absolute 0.01 K/mm3 (0.00-0.031); Immature Granulocyte Percent A 0.2 % (0-0.5); Lymphocytes Absolute Auto 1.51 K/mm3 (0.9-3.2); Lymphocytes Percent Auto 33.8 % (18.3-44.2); Mean Corpuscular HGB Conc 33.3 g/dl (32-36); Mean Corpuscular Hemoglobin 30.6 pg (26-34); Mean Corpuscular Volume 91.7 fl (80-100); Mean Platelet Volume 8.8 fl (7.4-10.4); Monocytes Absolute Auto 0.4 K/mm3 (0.1-0.6); Monocytes Percent Auto 8.9 % (2.6-8.5); Neutrophils Absolute Auto 2.5 K/mm3 (1.3-6.7); Neutrophils Percent Auto 55.4 % (45.5-73.1); Platelet Count Result 251 k/mm3 (150-375); Red Blood Count 4.45 M/mm3 (4.2-5.4); Red Cell Distribution Width 12.3 % (11.5-14.5); White Blood Count 4.5 K/mm3 (4.5-10.0)
[2021-06-25 17:57] LABS: Alanine Aminotransferase 15 U/L (4-35); Albumin Level 4.7 g/dL (3.5-5.1); Alkaline Phosphatase 62 U/L (38-126); Anion Gap 8 mmol/L (8-16); Aspartate Amino Transferase 29 U/L (14-36); Blood Urea Nitrogen 14 mg/dL (7-17); Calcium 9.3 mg/dL (8.4-10.2); Carbon Dioxide 29 mmol/L (22-30); Chloride 102 mmol/L (98-107); Estimated CRCL calculation 63 ml/min; Estimated Glomerular Filt Rate > 60; Glucose 105 mg/dL (65-110); Lipase 62 U/L (23-300); Potassium 3.6 mmol/L (3.4-5.0); Sodium 139 mmol/L (137-145)
[2021-06-25 17:59] LABS: Appearance Urine Clear (Clear); Bilirubin Urine Negative (Negative); Blood Urine Negative (Negative); Color Urine Yellow (Yellow); Glucose Urine UA Negative (Negative); Ketones Urine Negative (Negative); Leukocyte Esterase Ur 1+ LEU/UL (Negative); Nitrate Urine Negative (Negative); Protein Urine Negative (Negative); Urobilinogen Urine 0.2 mg/dL (<2.0); pH Urine 6.5 (5.0-9.0)
[2021-06-25 18:02] LABS: Add Urine Microscopic? YES; RBC Urine 0-2 /hpf (0-2); Squamous Epithelial Cell Urine Occasional /hpf (Few)
--- NOTE | 2021-06-25 19:52 | ED.ABDPAIN ---
HPI - Abdominal Pain General Chief Complaint: Abdominal Pain Stated Complaint: abd pain Time Seen by Provider: 06/25/21 18:30 History of Present Illness HPI narrative: Patient is a 50-year-old female with a history of recurrent diverticulitis who presents for upper abdominal pain x 2 weeks. She states the pain is relatively constant in nature and is unrelated to meals. Is most severe in her epigastric region, and states it feels pretty similar to her previous exacerbations of diverticulitis. Patient has been treated by her PCP for presumed diverticulitis with 2 rounds of Augmentin and clear liquid diet over the past 2 weeks, without improvement in her symptoms. She did not have a CT scan recently to confirm diverticulitis diagnosis. She denies any fevers, chills, diarrhea, nausea, vomiting, dysuria, hematuria. Recently stopped taking her Protonix, which she took for esophageal irritation that was seen on an EGD in the past. Related Data Home Medications Medication Instructions Recorded Confirmed sertraline 50 mg PO HS 07/16/20 09/12/20 omeprazole 20 mg PO DAILY 08/17/20 09/12/20 sumatriptan succinate 100 mg PO DAILY PRN 08/17/20 09/12/20 amoxicillin-pot clavulanate tablet 06/25/21 hydrocodone-acetaminophen 06/25/21 06/25/21 Allergies Allergy/AdvReac Type Severity Reaction Status Date / Time butorphanol Allergy Intermediate incoherent, Verified 06/25/21 18:25 fever cefdinir Allergy Unknown rash Verified 06/25/21 18:25 prochlorperazine Allergy Jittery Verified 06/25/21 18:25 [From Compazine] Review of Systems Review of Systems: Gen.: Denies fevers or chills Eyes: Denies eye pain or visual change ENT: Denies congestion Respiratory: Denies shortness of breath or cough CV: Denies chest pain or palpitations GI: Reports abdominal pain. Denies nausea, emesis or diarrhea denies burning, urgency, frequency or hematuria Musculoskeletal: Denies back pain or muscle pain Neuro: Denies numbness, tingling, weakness or focal weakness Skin: Denies rash Except as documented, all other systems reviewed and negative All systems reviewed & are unremarkable except as noted in HPI and below PMFSH Past Medical History Medical History Anxiety Diverticulitis X5 GERD (gastroesophageal reflux disease) Migraines Surgical History Surgical History No significant past surgical history Family History Family History Other Carcinoma of colon Cerebrovascular accident Social History Social History Social History: The patient is and lives at home with her 11-year-old daughter an 18-year-old son. She also has a 20-year-old daughter who is away at college. She reports a distant history of smoking when she was a teenager and while in college. She drinks a couple of alcoholic beverages a month. She denies any illicit substance use. 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 Primary care provider: Mireille Dinero Code status: Full code Smoking status: Former smoker Tobacco type: cigarettes Second hand tobacco smoke exposure: No Smoking end date: 03/17/01 Alcohol intake: current Alcohol use details: 2X MONTHLY Substance use: never Gender identity (if verbalized by the patient): Female Spiritual care concerns: No Exam Narrative: APPEARANCE: Well appearing, no pain in distress, well-nourished. Head normocephalic and atraumatic. EYES: PERRLA/EOMI, conjunctivae clear NOSE: No nasal drainage EARS: External ear normal in appearance THROAT: Oropharynx is clear. Mucous membranes are moist. NECK: Supple. No adenopathy, no masses. RESPIRATORY: Airway patent, respirations nonlabored. Clear to auscultation bilaterally, no rales, rhonchi, wheezing. CARDIOVASCULAR:
--- NOTE | 2021-06-25 20:17 | ECG_ITS ---
Measurements Intervals [place] Rate: 54 P: 74 NC: 138 QRS: -11 QRSD: 95 T: 60 QT: 415 QTc: 395 Interpretive Statements SINUS BRADYCARDIA CANNOT RULE OUT SEPTAL INFARCTION ABNORMAL ECG COMPARED TO ECG 07/25/2019 13:12:55 SINUS BRADYCARDIA NOW PRESENT Electronically Signed On 06-26-2021 18:02:52 CDT by Herrera Boateng M.D.
[2021-06-25] MEDS: BELLADONNA ALK/PHENOB ELIX 10 ML, MAG HYDROX/ALUMINUM HYD/SIMETH 30 ML, LIDOCAINE HCL 2... PO (20:29)
[2021-06-25 21:30] VITALS: BP 112/64; PULSE 80; RESP 16; O2SAT 99
== END 2021-06-25 21:35 | disposition home or self-care (01) ==
PROVIDERS: Emergency Medicine; Emergency Provider Emergency Medicine; PCP Physician Assistant
DX: K29.70 Gastritis, unspecified, without bleeding (principal); F41.9 Anxiety disorder, unspecified; K21.9 Gastro-esophageal reflux disease without esophagitis; Z87.891 Personal history of nicotine dependence; R00.1 Bradycardia, unspecified; R94.31 Abnormal electrocardiogram [ECG] [EKG]
CPT/HCPCS: 36415; 74177; 80053; 81001; 81025; 83690; 85025; 93005; 99284; A9270; Q9967

== ENCOUNTER 2021-07-26 01:13 | Day surgery (SDC) | payer BC, SELFPAY ==
[2021-07-23 09:43] VITALS: BMI 22.3
[2021-07-26 08:35] VITALS: BP 106/43; PULSE 68; RESP 18; TEMP 36.4; O2SAT 99
[2021-07-26] MEDS: LACTATED RINGERS 1,000 ML 150 ML IV CONT (08:44)
--- NOTE | 2021-07-26 09:00 | PM.HPGS ---
History of Present Illness History of Present Illness Consent: Risks, benefits, and alternatives have been discussed and questions answered. Patient agrees to proceed with procedure. Chief complaint: epigastric pain Narrative: Jesi Root is a 50 year old female who has been troubled by upper gastric pain and pain radiating across the upper abdomen. She had been to the emergency room on 2 occasions. It was thought that she may have diverticulitis and was given 2 rounds of Augmentin without significant improvement. She had been forgetting to take her omeprazole that she takes chronically. She had no vomiting or nausea. The pain has slowly subsided to a great extent but when she ate salad recently it gave her great bit of discomfort. Review of Systems Review of Systems: All systems reviewed & are unremarkable except as noted in HPI and below PMFSH Past Medical History Medical History Anxiety Diverticulitis X5 GERD (gastroesophageal reflux disease) Migraines Surgical History Surgical History No significant past surgical history Family History Family History Other Carcinoma of colon Cerebrovascular accident Social History Social History Social History: The patient is and lives at home with her 11-year-old daughter an 18-year-old son. She also has a 20-year-old daughter who is away at college. She reports a distant history of smoking when she was a teenager and while in college. She drinks a couple of alcoholic beverages a month. She denies any illicit substance use. 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 Primary care provider: Mireille Dinero Code status: Full code Smoking status: Never smoker Tobacco type: cigarettes Second hand tobacco smoke exposure: No Smoking end date: 03/17/01 Alcohol intake: current Alcohol use details: 3-4 drinks monthly Substance use: never Living arrangements: with family Gender identity (if verbalized by the patient): Female Spiritual care concerns: No Meds Home Medications and Allergies Home Medications Medication Instructions Recorded Confirmed Type sertraline 50 mg PO HS 07/16/20 07/23/21 History omeprazole 20 mg PO DAILY 08/17/20 07/23/21 History sumatriptan succinate 100 mg PO DAILY PRN 08/17/20 07/23/21 History alum-mag hydroxide-simeth [Maalox 10 ml PO Q6H PRN #3000 ml 06/25/21 07/23/21 Rx Advanced] hydrocodone-acetaminophen 1 tablet PO Q6H PRN 06/25/21 07/23/21 History dicyclomine 20 mg PO QID PRN 07/23/21 07/23/21 History Allergies Allergy/AdvReac Type Severity Reaction Status Date / Time butorphanol Allergy Intermediate incoherent, Verified 07/26/21 08:34 fever cefdinir Allergy Unknown rash Verified 07/26/21 08:34 prochlorperazine Allergy Jittery Verified 07/26/21 08:34 [From Compazine] Vital Signs Vital Signs - 24 hr 07/26/21 08:35 Temperature 36.4 C Pulse Rate 68 Respiratory Rate 18 Blood Pressure 106/43 L Pulse Oximetry 99 Exam Const: General: alert Orientation/consciousness: patient oriented x3 Resp: Auscultation: clear to auscultation bilaterally Cardio: Rhythm: regular rhythm GI: GI Palp: Yes Soft to palpation and No Tenderness to palpation present (GI) Neuro: General: patient oriented x3 Assessment and Plan Assessment and plan (1) Epigastric pain: Code(s): R10.13 - Epigastric pain Status: Acute Assessment and Plan: EGD with possible biopsy or dilatation or cautery.
--- NOTE | 2021-07-26 09:22 | WPDANESEPPF ---
Anes - Initial Pre Proc Eval Procedure: Operation Date: 07/26/21 09:45 Proposed Procedures p Esophagogastroduodenoscopy - Alec Mehta MD Date/Time: 07/26/21 09:22 Surgeon: Alec Mehta MD Pre Op Diagnosis: epigastric pain Patient Data Age: 50 Gender: F Height: 1.63 m Weight: 59.2 kg Last Vital Signs Temp 97.6 F 07/26/21 08:35 Pulse 68 07/26/21 08:35 Resp 18 07/26/21 08:35 BP 106/43 L 07/26/21 08:35 Pulse Ox 99 07/26/21 08:35 Allergies Allergy/AdvReac Type Severity Reaction Status Date / Time butorphanol Allergy Intermediate incoherent, Verified 07/26/21 08:34 fever cefdinir Allergy Unknown rash Verified 07/26/21 08:34 prochlorperazine Allergy Jittery Verified 07/26/21 08:34 [From Compazine] Home Medications Medication Instructions Recorded Confirmed Type sertraline 50 mg PO HS 07/16/20 07/23/21 History omeprazole 20 mg PO DAILY 08/17/20 07/23/21 History sumatriptan succinate 100 mg PO DAILY PRN 08/17/20 07/23/21 History alum-mag hydroxide-simeth [Maalox 10 ml PO Q6H PRN #3000 ml 06/25/21 07/23/21 Rx Advanced] hydrocodone-acetaminophen 1 tablet PO Q6H PRN 06/25/21 07/23/21 History dicyclomine 20 mg PO QID PRN 07/23/21 07/23/21 History Patient hx anesthesia problems: none Family hx anesthesia problems: none Results Review: All pre-operative results and documents have been reviewed as part of the pre-operative evaluation. [facility] Past Medical History Medical History Anxiety Diverticulitis X5 GERD (gastroesophageal reflux disease) Migraines Surgical History Surgical History No significant past surgical history Family History Family History Other Carcinoma of colon Cerebrovascular accident Social History Social History Social History: The patient is and lives at home with her 11-year-old daughter an 18-year-old son. She also has a 20-year-old daughter who is away at college. She reports a distant history of smoking when she was a teenager and while in college. She drinks a couple of alcoholic beverages a month. She denies any illicit substance use. 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 Primary care provider: Mireille Dinero Code status: Full code Smoking status: Never smoker Tobacco type: cigarettes Second hand tobacco smoke exposure: No Smoking end date: 03/17/01 Alcohol intake: current Alcohol use details: 3-4 drinks monthly Substance use: never Living arrangements: with family Gender identity (if verbalized by the patient): Female Spiritual care concerns: No Anes - Eval Final PreProcedure Day of Procedure 07/26/21 09:22 Patient weight: normal Heart: regular rate and rhythm Lungs: clear to auscultation Airway: Mallampati scale class II Neurological: alert and oriented Last oral intake: >/= 8 hours ASA classification: II Emergent: no Anesthetic plan: proceed Anesthesia type and monitoring: general GIVS and standard monitoring Results Review: All pre-operative results and documents have been reviewed as part of the pre-operative evaluation. Informed Consent: The patient's anesthetic plan and its attendant risks and benefits were discussed with the patient/family/POA. Questions were solicited and answers provided to the satisfaction of the patient/family/POA.
[2021-07-26 09:51] VITALS: BP 94/50; PULSE 52; RESP 14; O2SAT 97
[2021-07-26 10:01] VITALS: BP 103/63; PULSE 53; RESP 13; O2SAT 97
[2021-07-26 10:11] VITALS: BP 119/71; PULSE 68; RESP 19; O2SAT 97
== END 2021-07-26 10:31 | disposition home or self-care (01) ==
PROVIDERS: PCP Physician Assistant; Visit Provider Internal Medicine Gastroenterology
PROC: 0DJ08ZZ Inspection of Upper Intestinal Tract, Via Natural or Artificial Opening Endoscopic (ICD-10-PCS; CPT 43235; principal; 2021-07-26 09:45)
DX: K21.9 Gastro-esophageal reflux disease without esophagitis (principal); K29.70 Gastritis, unspecified, without bleeding; Z87.891 Personal history of nicotine dependence; F41.9 Anxiety disorder, unspecified
CPT/HCPCS: 43239; 87081; 88305; J2704; J7120

== ENCOUNTER 2021-10-17 13:46 | Emergency (ER) | payer BC, SELFPAY ==
--- NOTE | ~2021-10-17 | XR_ITS ---
EXAM: XR abdomen/kub 1V DATE: 10/17/2021 20:11 HISTORY: LOW ABDOMEN PAIN . COMPARISON: CT abdomen pelvis 06/25/2021. FINDINGS: Clear lung bases. Normal bowel gas pattern. No organomegaly. Punctate calcifications proje cting over the left kidney. Pelvic phleboliths. Regional bones and soft tissues normal for age. IMPRESSION: No radiographic evidence of obstruction or ileus. Left nephrolithiasis. Reviewed, dictated and finalized at location K. IMPRESSION: No radiographic evidence of obstruction or ileus. Left nephrolithia sis.
--- NOTE | ~2021-10-17 | CT_ITS ---
EXAMINATION: CT abdomen pelvis wo con DATE: 10/17/2021 21:14 INDICATION: flank pain TECHNIQUE: Computed tomography (CT) of the abdomen and pelvis was performed without intravenous contr ast. Automated exposure control and iterative reconstruction technique were employed. The dose-length product was 187.84 mGy-cm. COMPARISON: None. FINDINGS: Lower thorax: Unremarkable Liver: Right lobe hemangioma or cyst. Additional subcentimeter hypodensities that are too small to ch aracterize. Biliary/Gallbladder: Gallbladder is normal. No bile duct dilation. Pancreas: No mass or duct dilation. Spleen: Normal. Adrenals:No mass. Kidneys: Mild left hydronephrosis. Bilateral punctate nonobstructive calculi. GI tract: No small or large bowel dilation. Normal appendix. Diverticulosis without diverticulitis. Mesentery/Peritoneum: Stable mid mesenteric fat stranding and borderline lymphadenopathy. Retroperitoneum: No mass. Minimal atherosclerotic abdominal aortic and/or arterial calcifications. Pelvis: 5 mm left UVJ stone. Pelvic organs are otherwise within normal limits. Soft Tissues: Soft tissues and body wall unremarkable. Bones: No acute osseous finding. IMPRESSION: 5 mm left UVJ stone causing mild obstructive uropathy. Additional findings in the mesentery findings may reflect mesenteric panniculitis in the appropriate clinical context. Reviewed, dictated and finalized at location K. IMPRESSION: 5 mm left UVJ stone causing mild obstructive uropathy. Additional findings in t he mesentery findings may reflect mesenteric panniculitis in the appropriate cl inical context.
[2021-10-17 14:10] VITALS: BP 135/56; PULSE 88; RESP 18; TEMP 36.6; O2SAT 96
[2021-10-17 14:33] LABS: Basophils Percent Auto 0.3 % (0.2-1.2); Eosinophils Absolute Auto 0.1 K/mm3 (0-0.3); Eosinophils Percent Auto 1.9 % (0-4.4); Hematocrit 37.2 % (37.0-47.0); Hemoglobin 12.1 g/dL (12.0-15.0); Immature Granulocyte Absolute 0.01 K/mm3 (0.00-0.031); Immature Granulocyte Percent A 0.2 % (0-0.5); Lymphocytes Absolute Auto 1.46 K/mm3 (0.9-3.2); Lymphocytes Percent Auto 25.3 % (18.3-44.2); Mean Corpuscular HGB Conc 32.5 g/dl (32-36); Mean Corpuscular Hemoglobin 30.6 pg (26-34); Mean Corpuscular Volume 93.9 fl (80-100); Mean Platelet Volume 8.6 fl (7.4-10.4); Monocytes Absolute Auto 0.4 K/mm3 (0.1-0.6); Monocytes Percent Auto 7.6 % (2.6-8.5); Neutrophils Absolute Auto 3.7 K/mm3 (1.3-6.7); Neutrophils Percent Auto 64.7 % (45.5-73.1); Platelet Count Result 258 k/mm3 (150-375); Red Blood Count 3.96 M/mm3 (4.2-5.4); Red Cell Distribution Width 12.9 % (11.5-14.5); White Blood Count 5.8 K/mm3 (4.5-10.0)
[2021-10-17 14:42] LABS: Alanine Aminotransferase 20 U/L (6-35); Albumin Level 4.7 g/dL (3.5-5.1); Alkaline Phosphatase 65 U/L (38-126); Anion Gap 10 mmol/L (8-16); Aspartate Amino Transferase 32 U/L (14-36); Bilirubin,Total 1.8 mg/dL (0.2-1.3); Blood Urea Nitrogen 18 mg/dL (7-17); Carbon Dioxide 28 mmol/L (22-30); Chloride 101 mmol/L (98-107); Estimated CRCL calculation 56 ml/min; Estimated Glomerular Filt Rate > 60; Glucose 115 mg/dL (65-110); Sodium 139 mmol/L (137-145)
[2021-10-17 14:56] LABS: Add Urine Microscopic? YES; Appearance Urine Clear (Clear); Bilirubin Urine Negative (Negative); Blood Urine 1+ (Negative); Color Urine Orange (Yellow); Glucose Urine UA Negative (Negative); Ketones Urine Negative (Negative); Leukocyte Esterase Ur Trace LEU/UL (Negative); Nitrate Urine Positive (Negative); Protein Urine Negative (Negative); Urobilinogen Urine 0.2 mg/dL (<2.0); pH Urine 5.5 (5.0-9.0)
[2021-10-17 15:04] LABS: Bacteria Urine Trace /hpf; Mucus Urine Rare /lpf; Squamous Epithelial Cell Urine Few /hpf (Few)
[2021-10-17 16:23] VITALS: BP 110/45; PULSE 64; RESP 99; TEMP 37.2
--- NOTE | 2021-10-17 20:07 | ED.ABDPAIN ---
HPI - Abdominal Pain General Chief Complaint: Abdominal Pain Stated Complaint: kidney stone Time Seen by Provider: 10/17/21 19:36 History of Present Illness HPI narrative: Patient is a 50-year-old female who presents ER for further evaluation regarding a kidney stone. Patient reports she thought it she had a UTI over the last couple weeks and had been on Macrobid as well as Pyridium. Symptoms were not improving and her PCP opted to get a CT scan of her abdomen pelvis. The scan occurred 2 days ago. It shows a kidney stone that is obstructing. Patient does not know the size nor the side that is on. She has been waiting for urology to call her back but has not heard from them so she opted to come here for further evaluation. She has cramping suprapubic discomfort with urinary frequency. Unsure if she is having complete emptying. No dysuria or fevers or chills or sweats. Will occasionally get some nausea. Patient was also recently on ciprofloxacin but did not complete the course. Related Data Home Medications Medication Instructions Recorded Confirmed sertraline 50 mg tablet 50 mg PO HS 07/16/20 07/23/21 sumatriptan succinate 100 mg tablet 100 mg PO DAILY PRN Migraine 08/17/20 07/23/21 Headache hydrocodone 5 mg-acetaminophen 325 1 tablet PO Q6H PRN Pain 06/25/21 07/23/21 mg tablet dicyclomine 10 mg capsule 20 mg PO QID PRN cramping 07/23/21 07/23/21 Allergies Allergy/AdvReac Type Severity Reaction Status Date / Time butorphanol Allergy Intermediate incoherent, Verified 10/17/21 13:47 fever cefdinir Allergy Unknown rash Verified 10/17/21 13:47 prochlorperazine Allergy Jittery Verified 10/17/21 13:47 [From Compazine] amoxicillin [From Augmentin] AdvReac Diarrhea Verified 10/17/21 13:47 clavulanic acid AdvReac Diarrhea Verified 10/17/21 13:47 [From Augmentin] Review of Systems Review of Systems: All systems reviewed & are unremarkable except as noted in HPI and below Constitutional: Constitutional: Denies chills and Denies fever(s) ENT: Denies nasal congestion and Denies sore throat Cardiovascular: Cardiovascular: Denies chest pain, Denies radiating jaw, neck or arm pain and Denies slow heart rate Respiratory: Respiratory: Denies cough and Denies dyspnea Gastrointestinal: Gastrointestinal: Denies abdominal pain, Denies nausea and Denies vomiting Genitourinary: Genitourinary: Denies hematuria, Reports nocturia, Denies dysuria and Reports flank pain PMFSH Past Medical History Medical History Anxiety Diverticulitis X5 GERD (gastroesophageal reflux disease) Migraines Surgical History Surgical History No significant past surgical history Family History Family History Other Carcinoma of colon Cerebrovascular accident Social History Social History Social History: The patient is and lives at home with her 11-year-old daughter an 18-year-old son. She also has a 20-year-old daughter who is away at college. She reports a distant history of smoking when she was a teenager and while in college. She drinks a couple of alcoholic beverages a month. She denies any illicit substance use. 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 Primary care provider: Mireille Dinero Code status: Full code Smoking status: Never smoker Tobacco type: cigarettes Second hand tobacco smoke exposure: No Smoking end date: 03/17/01 Alcohol intake: current Alcohol use details: 3-4 drinks monthly Substance use: never Gender identity (if verbalized by the patient): Female Spiritual care concerns: No Exam Narrative: GENERAL: Well-appearing, well-nourished, and in no acute distress. HEAD: Normocephalic, atraumatic. EYES: PERRL and EOMI. CHEST: Clear to auscultation. No
[2021-10-17] MEDS: TAMSULOSIN HCL 0.4 MG CAPSULE PO (22:10)
[2021-10-17] MEDS: HYDROcodone/acetaminophen (*CRX) 5-325 MG TABLET 1 TAB PO (22:11)
== END 2021-10-17 22:20 | disposition home or self-care (01) ==
PROVIDERS: Emergency Medicine; Emergency Provider Emergency Medicine; PCP Physician Assistant
DX: N20.1 Calculus of ureter (principal); N39.0 Urinary tract infection, site not specified; F17.210 Nicotine dependence, cigarettes, uncomplicated; F41.9 Anxiety disorder, unspecified; K21.9 Gastro-esophageal reflux disease without esophagitis
CPT/HCPCS: 36415; 74018; 74176; 80053; 81001; 81025; 85025; 99284; A9270

== ENCOUNTER → 2021-11-09 09:08 | Outpatient (CLI) | payer BC, SELFPAY ==
--- NOTE | ~2021-11-09 | US_ITS ---
US retroperitoneal comp 11/09/2021 09:32 Procedure: Realtime transabdominal ultrasound of the kidneys and bladder. Indication: Hydronephrosis. History of kidney stones. Comparison: CT dated 10/17/2021 Findings: Renal echotexture is normal bilaterally without hydronephrosis, contour deforming mass or r enal calculus. The right kidney measures 9.2 cm and left kidney measures 10.1 cm. Bladder within nor mal limits. Impression: 1: Unremarkable renal ultrasound. No stones, masses or hydronephrosis. Reviewed, dictated and finalized at location A. Impression: 1: Unremarkable renal ultrasound. No stones, masses or hydronephrosis.
== END ==
PROVIDERS: PCP Physician Assistant; Visit Provider Urology
DX: N13.30 Unspecified hydronephrosis (principal)
CPT/HCPCS: 76770

== ENCOUNTER → 2022-03-08 12:25 | Outpatient (CLI) | payer BC, SELFPAY ==
--- NOTE | ~2022-03-08 | MM_ITS ---
EXAMINATION: MM screening [facility] w [facility] HISTORY: Screening TECHNIQUE: Craniocaudal and mediolateral oblique 3-D tomosynthesis images were obtained and synthetic 2-D images were generated. CAD analysis was submitted and interpreted. COMPARISON: Comparison to multiple prior studies sequentially, with oldest reviewed study dated 12/16. BREAST PARENCHYMAL COMPOSITION: The breasts are heterogeneously dense, which may obscure small masses . FINDINGS: There is no evidence of suspicious mass, calcification, or architectural distortion to sugg est malignancy in either breast. There has been no suspicious interval change. IMPRESSION: 1. No mammographic evidence of malignancy. 2. Recommend routine screening mammography in one year. BI-RADS Category 1: Negative Reviewed, dictated and finalized at location A. ELECTRICIAN
== END ==
PROVIDERS: PCP Physician Assistant; Visit Provider Nurse Practitioner
DX: Z12.31 Encounter for screening mammogram for malignant neoplasm of breast (principal)
CPT/HCPCS: 77063; 77067

== ENCOUNTER → 2023-03-21 15:04 | Outpatient (CLI) | payer BC, SELFPAY ==
--- NOTE | ~2023-03-21 | MM_ITS ---
EXAMINATION: MM screening [facility] BI w [facility] HISTORY: Screening mammogram TECHNIQUE: Craniocaudal and mediolateral oblique 3-D tomosynthesis images were obtained and synthetic 2-D images were generated. CAD analysis was submitted and interpreted. COMPARISON: 03/08/2022, 03/01/2021, 02/05/2021, 12/07/2019 BREAST PARENCHYMAL COMPOSITION: The breasts are heterogeneously dense, which may obscure small masses . FINDINGS: No suspicious mass, calcification, or architectural distortion are identified in either mark ast to suggest malignancy. There has been no suspicious interval change. IMPRESSION: 1. No mammographic evidence of malignancy. 2. Recommend routine screening mammography in one year. BI-RADS Category 1: Negative Reviewed, dictated and finalized at location A. EW MANAGER
== END ==
PROVIDERS: PCP Physician Assistant; Visit Provider Nurse Practitioner
DX: Z12.31 Encounter for screening mammogram for malignant neoplasm of breast (principal)
CPT/HCPCS: 77063; 77067

== ENCOUNTER 2024-10-08 15:48 | Outpatient (CLI) | payer BC, SELFPAY ==
--- NOTE | ~2024-10-08 | XR_ITS ---
EXAM: XR shoulder RT min 2V DATE: 10/08/2024 16:19 HISTORY: RIGHT SHOULDER PAIN, CERVICAL RADICULOPATHY . COMPARISON: None available. FINDINGS: Decreased mineralization. No fracture or dislocation. No lytic or blastic lesion. Mild AC joint and glenohumeral joint degenerative change. No erosion or periosteal change. Soft tissues withi n normal limits. IMPRESSION: Osteopenia. Mild polyarticular right shoulder osteoarthritis. Reviewed, dictated and finalized at location K.
--- NOTE | ~2024-10-08 | XR_ITS ---
XR_[id number] 10/08/2024 16:19 Indication: Neck pain. Cervical radiculopathy. Procedure: 3 view cervical spine Comparison: No prior studies for comparison. Findings: There is mild multilevel uncinate and facet hypertrophy. Lung apices are normal. No prevert ebral soft tissue swelling. Odontoid process is normal. No acute fracture or traumatic malalignment. Impression: 1: Mild cervical spondylosis. Reviewed, dictated and finalized at location B. Impression: 1: Mild cervical spondylosis.
== END 2024-10-08 15:49 | disposition home or self-care (01) ==
LOC: MICIMG 15:49
PROVIDERS: PCP Physician Assistant; Visit Provider Physician Assistant
DX: M47.22 Other spondylosis with radiculopathy, cervical region (principal); M85.811 Other specified disorders of bone density and structure, right shoulder; M19.011 Primary osteoarthritis, right shoulder
CPT/HCPCS: 72040; 73030

== ENCOUNTER 2024-11-07 13:04 | Emergency (ER) | payer BC, SELFPAY ==
--- NOTE | ~2024-11-07 | CT_ITS ---
EXAMINATION: CT abdomen pelvis w con DATE: 11/07/2024 13:57 INDICATION: Abdominal pain TECHNIQUE: Computed tomography (CT) of the abdomen and pelvis was performed with 100 cc Omnipaque 350 intravenous contrast. The dose-length product was 344.45 mGy-cm. COMPARISON: CT dated 10/17/2021. FINDINGS: There is acute uncomplicated sigmoid diverticulitis. No obstruction. No evidence for perforation or abscess. Lung bases unremarkable. No free air or free fluid. No evidence for peridiverticular abscess. Fatty infiltration of the liver. Small low-density masses of the liver, most likely benign. There are tiny bilateral subcentimeter renal cysts. Gallbladder is present. The spleen, pancreas, adrenal glands within normal limits. IMPRESSION: 1. Acute uncomplicated sigmoid diverticulitis. Reviewed, dictated and finalized at location O.
[2024-11-07 13:04] VITALS: BP 117/50; PULSE 81; RESP 16; TEMP 36.5; O2SAT 99
[2024-11-07 13:31] LABS: BEDSIDEPREGUCG Negative (Negative)
[2024-11-07 13:32] LABS: Hematocrit 39.3 % (37.0-47.0); Hemoglobin 12.8 g/dL (12.0-15.0); Immature Granulocyte Percent A 0.4 % (0-0.5); Lymphocytes Absolute Auto 1.62 K/mm3 (0.9-3.2); Mean Corpuscular HGB Conc 32.6 g/dl (32-36); Mean Corpuscular Hemoglobin 29.7 pg (26-34); Mean Corpuscular Volume 91.2 fl (80-100); Nucleated Red Blood Cells Absolute Auto 0.000 K/mm3 (0.0-0.012); Nucleated Red Blood Cells Perc 0.0 % (0.0-0.2); Platelet Count Result 258 k/mm3 (150-375); Red Blood Count 4.31 M/mm3 (4.2-5.4); White Blood Count 7.8 K/mm3 (4.5-10.0)
[2024-11-07 13:36] LABS: Add Urine Microscopic? YES; Appearance Urine Cloudy (Clear); Glucose Urine UA Negative (Negative); Leukocyte Esterase Ur 2+ LEU/UL (Negative); Nitrate Urine Negative (Negative); Non Pathogenic Casts 0-2; Specific Grav Ur 1.016 (1.001-1.035)
--- NOTE | 2024-11-07 13:36 | ED.ABDPAIN ---
HPI - Abdominal Pain General Chief Complaint: Abdominal Pain Stated Complaint: Poss Diverticulitis flare up-pain x 3 days Time Seen by Provider: 11/07/24 13:32 Source: patient Mode of arrival: ambulatory History of Present Illness HPI narrative: 53 years old white female came to the ED from home by private car complaining of left lower quadrant pain associated with nausea and chills. She denies any vomiting or radiation of pain, she report similar symptoms secondary to diverticulitis, she denies any urinary symptoms. Related Data Home Medications ?Medication ?Instructions ?Recorded ?Confirmed ?Last Taken ?Type sertraline 50 mg tablet 50 mg PO HS 07/16/20 07/23/21 07/25/21 History sumatriptan succinate 100 mg tablet 100 mg PO DAILY PRN Migraine 08/17/20 07/23/21 07/20/20 10:00 History Headache hydrocodone 5 mg-acetaminophen 325 1 tablet PO Q6H PRN Pain 06/25/21 07/23/21 Unknown History mg tablet dicyclomine 10 mg capsule 20 mg PO QID PRN cramping 07/23/21 07/23/21 Unknown History Allergies Allergy/AdvReac Type Severity Reaction Status Date / Time butorphanol Allergy Intermediate incoherent, Verified 11/07/24 13:05 fever cefdinir Allergy Unknown rash Verified 11/07/24 13:05 prochlorperazine (From Allergy Jittery Verified 11/07/24 13:05 Compazine) amoxicillin (From Augmentin) AdvReac Diarrhea Verified 11/07/24 13:05 clavulanic acid (From AdvReac Diarrhea Verified 11/07/24 13:05 Augmentin) Review of Systems Review of Systems: All systems reviewed & are unremarkable except as noted in HPI and below PMFSH Past Medical History Medical History Migraines GERD (gastroesophageal reflux disease) Diverticulitis X5 Anxiety Surgical History Surgical History No significant past surgical history Family History Family History Other Carcinoma of colon Cerebrovascular accident Social History Social History Social History: The patient is and lives at home with her 11-year-old daughter an 18-year-old son. She also has a 20-year-old daughter who is away at college. She reports a distant history of smoking when she was a teenager and while in college. She drinks a couple of alcoholic beverages a month. She denies any illicit substance use. 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 Primary care provider: Mireille Dinero Code status: Full code Smoking status: Never smoker Tobacco type: cigarettes Second hand tobacco smoke exposure: No Smoking end date: 03/17/01 Alcohol intake: current Alcohol use details: 3-4 drinks monthly Substance use: never Living arrangements: with family Gender identity (if verbalized by the patient): Female Spiritual care concerns: No Exam Narrative: General appearance: Well-developed, well-nourished Skin: Normal color Head: Normocephalic, nontraumatic Eyes: Clear conjunctiva ENT: Oropharynx normal, ears normal, nose normal Neck: Supple, nontender Chest and respiratory: Airway patent, no respiratory distress, no accessory muscle use Heart: Regular rate/rhythm Abdomen: Soft, diffuse tenderness lower abdomen bilaterally mainly on the left side, no guarding or rebound, quite bowel sounds Vascular: Normal peripheral pulses, normal capillary refill. Musculoskeletal: Normal range of motion, nontender back Neurologic: Alert and oriented ?3, SUPERINTENDENT LOGGING is normal as tested, no gross motor deficit Course Vital Signs Vital signs: Vital Signs Temperature 36.5 C 11/07/24 13:04 Pulse Rate 81 11/07/24 13:04 Respiratory Rate 16 11/07/24 13:04 Blood Pressure 117/50 L 11/07/24 13:04 Pulse Oximetry 99 11/07/24 13:04 Oxygen Delivery Room Air 11/07/24 13:04 Temperature 36.5 C 11/07/24 13:04 Pulse Rate 81 11/07/24 13:04 Respiratory Rate 16 11/07/24 13:04 Blood Pressure 117/50 L 11/07/24 13:04 Pulse Oximetry 99 11/07/24 13:04 Oxygen Delivery Room Air 11/07/24 13:04 MDM - Abdominal Pain MDM Narrative Medical decision making narrative: Patient presents with left lower quadrant pain Vital signs are stable Physical examination consistent with tenderness left lower quadrant Differential diagnosis include diverticulitis, colitis, urinary tract infection, constipation. Blood workup today includes CBC, CMP, lipase showed bilirubin 1.7 otherwise insignificant finding Urinalysis showed 2+ leukocyte Estrace, 11-20 urine WBC consistent with infection CT abdomen and pelvis with IV contrast showed uncomplicated diverticulitis Diagnosis acute diverticulitis, urinary tract infection Discharged on Levaquin and metronidazole The pt was discharged to home.the pt,s condition upon discharge was fair,education was provided to the pt in reference to the final impression,discharge study results,treatment,prognosis and need for follow up . Differential Diagnosis Differential diagnosis: Likely other (As above) Medical Records Attestation: I reviewed the patient's medical records. Lab Data Attestation: I reviewed the patient's lab results. 11/07/24 13:25 11/07/24 13:25 Labs: Lab Results 11/07/24 11/07/24 Range/Units 13:25 13:29 WBC 7.8 (4.5-10.0) K/mm3 RBC 4.31 (4.2-5.4) M/mm3 Hgb 12.8 (12.0-15.0) g/dL Hct 39.3 (37.0-47.0) % MCV 91.2 (80-100) fl MCH 29.7 (26-34) pg MCHC 32.6 (32-36) g/dl RDW 12.3 (11.5-14.5) % Plt Count 258 (150-375) k/mm3 MPV 8.6 (7.4-10.4) fl Immature Gran % (Auto) 0.4 (0-0.5) % Neut % (Auto) 70.1 (45.5-73.1) % Lymph % (Auto) 20.8 (18.3-44.2) % Brooks % (Auto) 6.6 (2.6-8.5) % Eos % (Auto) 1.8 (0-4.4) % Baso % (Auto) 0.3 (0.2-1.2) % Lymph # (Auto) 1.62 (0.9-3.2) K/mm3 Brooks # (Auto) 0.5 (0.1-0.6) K/mm3 Eos # (Auto) 0.1 (0-0.3) K/mm3 Baso # (Auto) 0.0 (0.0-0.1) K/mm3 Abs Immat Gran (auto) 0.03 (0.00-0.031) K/mm3 Absolute Neuts (auto) 5.5 (1.3-6.7) K/mm3 Absolute Nucleated RBC 0.000 (0.0-0.012) K/mm3 Nucleated RBC % 0.0 (0.0-0.2) % Sodium 137 (137-145) mmol/L Potassium 3.7 (3.4-5.0) mmol/L Chloride 100 (98-107) mmol/L Carbon Dioxide 29 (22-30) mmol/L Anion Gap 8 (4-12) mmol/L BUN 19 H (7-17) mg/dL Creatinine 1.05 H (0.7-1.0) mg/dL Estim Creat Clear Calc 47 ml/min Estimated GFR 55 L (59 - ) Glucose 100 (65-110) mg/dL Calcium 9.5 (8.4-10.2) mg/dL Total Bilirubin 1.7 H (0.2-1.3) mg/dL AST 28 (14-36) U/L ALT 17 (6-35) U/L Alkaline Phosphatase 77 (38-126) U/L Total Protein 8.1 (6.3-8.2) g/dL Albumin 4.7 (3.5-5.1) g/dL Lipase 61 (23-300) U/L Urine Color Yellow (Yellow) Urine Appearance Cloudy H (Clear) Urine pH 5.5 (5.0-9.0) Ur Specific [place] 1.016 (1.001-1.035) Urine Protein Negative (Negative) mg/dL Urine Glucose (UA) Negative (Negative) mg/dL Urine Ketones Negative (Negative) mg/dL Ur Blood (Man) 1+ H (Negative) Urine Nitrate Negative (Negative) Urine Bilirubin Negative (Negative) Urine Urobilinogen 0.2 (<2.0) mg/dL Leukocyte Esterase Rfl 2+ H (Negative) MARY/UL Urine RBC 3-5 H (0-2) /hpf Urine WBC 11-20 H (0-3) /hpf Ur Squamous Epith Cells Few (Few) /hpf Urine Bacteria None seen /hpf Urine Casts 0-2 POC Urine HCG, Qual Negative (Negative) Imaging Data Radiologist's impression: ITS Impressions Abdomen/Pelvis CT 08/24/25 14:00 IMPRESSION: 1. Acute uncomplicated sigmoid diverticulitis. Critical Care Time Critical Care Time Critical Care Time: No Discharge Plan Discharge Clinical Impression: Diverticulitis, Urinary tract infection Patient Disposition: Home Condition: Stable Instructions: Antibiotic Form, Diverticulitis (ED), Diverticulitis Diet (ED), Urinary Tract Infection in Women (DC) Additional Instructions: Return if symptoms are worsening , call your family physician for appointment, take Tylenol as as needed for aches and pain, continue home medications. Patient Language: Latvian Prescriptions: New levofloxacin 750 mg tablet 750 mg PO DAILY Qty: 7 5RF metronidazole 500 mg tablet 500 mg PO Q8H 7 Days Qty: 21 0RF No Action dicyclomine 10 mg capsule 20 mg PO QID PRN (Reason: cramping) Rx Instructions: TAKE 2 CAPS BY MOUTH 4 TIMES A DAY sertraline 50 mg tablet 50 mg PO HS sumatriptan succinate 100 mg tablet 100 mg PO DAILY PRN (Reason: Migraine Headache) hydrocodone-acetaminophen 5-325 mg tablet 1 tablet PO Q6H PRN (Reason: Pain) alum-mag hydroxide-simeth [Maalox Advanced] 200-200-20 mg/5 mL suspension 10 ml PO Q6H PRN (Reason: dyspepsia) Qty: 3000 0RF hydrocodone-acetaminophen 5-325 mg tablet 1 tablet PO Q6H PRN (Reason: pain) Qty: 10 0RF ondansetron 4 mg tablet,disintegrating 4 mg PO Q6H PRN (Reason: nausea and vomiting) Qty: 10 0RF tamsulosin 0.4 mg capsule 0.4 mg PO DAILY Qty: 5 0RF ciprofloxacin HCl [Cipro] 500 mg tablet 500 mg PO Q12H Qty: 6 0RF pantoprazole 40 mg tablet,delayed release (DR/EC) 40 mg PO QAM 28 Days Qty: 30 2RF Follow-up/Referrals: Rosette,ALEXI Kendrick [Primary Care Provider, Unknown]
[2024-11-07 13:52] LABS: Alanine Aminotransferase 17 U/L (6-35); Albumin Level 4.7 g/dL (3.5-5.1); Alkaline Phosphatase 77 U/L (38-126); Anion Gap 8 mmol/L (4-12); Aspartate Amino Transferase 28 U/L (14-36); Bilirubin,Total 1.7 mg/dL (0.2-1.3); Blood Urea Nitrogen 19 mg/dL (7-17); Calcium 9.5 mg/dL (8.4-10.2); Carbon Dioxide 29 mmol/L (22-30); Chloride 100 mmol/L (98-107); Estimated CRCL calculation 47 ml/min; Estimated Glomerular Filt Rate 55; Glucose 100 mg/dL (65-110); Lipase 61 U/L (23-300); Potassium 3.7 mmol/L (3.4-5.0); Sodium 137 mmol/L (137-145); Total Protein 8.1 g/dL (6.3-8.2)
[2024-11-07] MEDS: SODIUM CHLORIDE 0.9% IV 1,000 ML 999 ML IV CONT (13:54)
[2024-11-08 01:18] LABS: Estimated CRCL calculation 45 ml/min; Estimated Glomerular Filt Rate 52
== END 2024-11-07 17:03 | disposition home or self-care (01) ==
PROVIDERS: Emergency Provider Emergency Medicine; PCP Physician Assistant
DX: K57.32 Diverticulitis of large intestine without perforation or abscess without bleeding (principal); N39.0 Urinary tract infection, site not specified; K21.9 Gastro-esophageal reflux disease without esophagitis; F41.9 Anxiety disorder, unspecified; Z87.891 Personal history of nicotine dependence; Z79.899 Other long term (current) drug therapy
CPT/HCPCS: 36415; 74177; 80053; 81001; 81025; 83690; 85025; 87086; 96360; 99284; J7030; Q9967